=== PATIENT | male | born 1965 | race African-American/Black ===

== ENCOUNTER 2016-07-08 20:34 | Emergency (ER) | payer OTHER ==
[~2016-07-08] VITALS: Ht 177.8 cm; Wt 95.3 kg
[2016-07-08 21:04] VITALS: BP 142/95
--- NOTE | 2016-07-08 22:23 | NUR ---
PT TAKEN TO BED 3
--- NOTE | 2016-07-08 22:52 | NUR ---
51Y/M PT PRESENTS TO ED WITH C/O HEADACHE X 3 DAYS, PATIENT STATES HX. HTN, HAVING PAIN X 3 DAYS, TODAY PAIN WORSEN . DENIES N/V/D; SKIN IS PINK/WARM/DRY; AAOX4 WITH EVEN AND STEADY GAIT; LUNGS CLEAR BL; HR EVEN AND REGULAR; PT DENIES ANY FEVER, CP, SOB, OR COUGH AT THIS TIME; PATIENT STATES PAIN OF 8/10 AT THIS TIME; VSS; PATIENT POSITIONED FOR COMFORT; HOB ELEVATED; BEDRAILS UP X2; BED DOWN. ER MD MADE AWARE OF PT STATUS.
--- NOTE | 2016-07-08 23:46 | NUR ---
Michelle cornejo in [facility] - 07/09/16 at [address] Charles evaluating patient at bedside.
--- NOTE | 2016-07-09 00:01 | NUR ---
Dr. Charles evaluating patient at bedside.
[2016-07-09 00:18] VITALS: BP 142/95
--- NOTE | 2016-07-09 00:18 | NUR ---
Patient discharged with v/s stable. Written and verbal after care instructions given and explained. Patient alert, oriented and verbalized understanding of instructions. Ambulatory with steady gait. All questions addressed prior to discharge. ID band removed. Patient advised to follow up with PMD. Rx of AMITRIPTYLINE HYDROCHLORIDE 50MG given. Patient educated on indication of medication including possible reaction and side effects. Opportunity to ask questions provided and answered.
[2016-09-08] MEDS ORDERED: COREG25 MG PO (06:40)
[2016-09-08] MEDS ORDERED: HCTZ/LISINOPRIL1 TA1 PO (06:40)
== END 2016-07-09 00:18 | disposition home or self-care (01) ==
LOC: MED 20:34
DX: G50.0 Trigeminal neuralgia (principal); I10 Essential (primary) hypertension; Z88.1 Allergy status to other antibiotic agents

== ENCOUNTER 2016-09-08 05:52 | Day surgery (SDC) | payer OTHER ==
[~2016-09-08] VITALS: Ht 177.8 cm; Wt 95.3 kg
[2016-09-08] MEDS ORDERED: CLINDAMYCIN 600 MG in DEXTROSE 5% 50 ML IV SCH (06:20)
[2016-09-08] MEDS ORDERED: CARV25TA PO (06:40)
[2016-09-08] MEDS ORDERED: HYDR-7 PO (06:40)
[2016-09-08] MEDS ORDERED: BUPIVACAINE-MPF/EPI 0.25% 30 ML VIAL INJ ONE (08:48)
[2016-09-08] MEDS ORDERED: LIDOCAINE 1% 0 ML ONE (08:48)
[2016-09-08] MEDS ORDERED: SEVOFLURANE 250 ML BTL INH ONE (09:20)
[2016-09-08] MEDS ORDERED: PROPOFOL 200 MG/20 ML VIAL IV ONE (09:20)
[2016-09-08] MEDS ORDERED: ONDANSETRON 4 MG/2 ML VIAL ONE (09:20)
[2016-09-08] MEDS ORDERED: DEXAMETHASONE 4 MG/ML VIAL ONE (09:20)
[2016-09-08] MEDS ORDERED: MIDAZOLAM 2 MG/2 ML VIAL ONE (09:24)
[2016-09-08] MEDS ORDERED: MEPERIDINE 50 MG/ML SYR ONE (09:25)
[2016-09-08] MEDS ORDERED: fentaNYL 0.05 MG/ML VIAL ONE (09:25)
[2016-09-08] MEDS: LACTATED RINGERS 1,000 ML IV SCH ×2 (09:57→18:17)
[2016-09-08] MEDS ORDERED: MEPERIDINE 25 MG/ML SYR IVP PRN (10:00)
[2016-09-08] MEDS ORDERED: ONDANSETRON 4 MG/2 ML VIAL IVP PRN (10:00)
[2016-09-08] MEDS ORDERED: diphenhydrAMINE 50 MG/ML VIAL IVP PRN (10:00)
[2016-09-08] MEDS ORDERED: HYDROmorphone 1 MG/ML AMP IVP PRN (10:00)
[2016-09-08] MEDS ORDERED: LIDOCAINE 2% 100 MG/5 ML UJET TP ONE ×2 (10:44→10:49)
[2016-09-08] MEDS ORDERED: GELATIN SPONGE 100 1 SPG TP ONE (10:45)
[2016-09-08] MEDS ORDERED: FOAM DRESSING TP SCH (10:50)
[2016-09-08] MEDS: NACL 0.9% 1,000 ML IV SCH ×2 (11:07→23:12)
[2016-09-08] MEDS ORDERED: MORPHINE SULFATE 4 MG/ML SYR IV PRN (11:10)
[2016-09-08] MEDS ORDERED: ONDANSETRON 4 MG/2 ML VIAL IV PRN (11:10)
[2016-09-08] MEDS ORDERED: MORPHINE SULFATE 2 MG/ML SYR IVP PRN (11:10)
[2016-09-08] MEDS ORDERED: MEPERIDINE 25 MG/ML SYR ONE (11:49)
[2016-09-08] MEDS: oxyCODONE/APAP 5/325 MG 1 TAB TAB PO SCH ×2 (13:30→13:34)
[2016-09-08] MEDS ORDERED: DOCUSATE SODIUM 100 MG GELCAP PO PRN (18:00)
[2016-09-08] MEDS ORDERED: oxyCODONE/APAP 5/325 MG 1 TAB TAB PO PRN (18:10)
[2016-09-08] MEDS: HYDROmorphone 1 MG/ML AMP IVP PRN ×2 (18:52→23:04)
--- NOTE | 2016-09-08 19:25 | NUR ---
RECEIVED REPORT FROM HILARIO CAMARENA/IVAN AT BEDSIDE. INITIAL ASSESSMENT COMPLETED. PT AAOX4. PT DENIES PAIN AT THIS TIME. PT HAS IV TO LEFT FOREARM G 20; ASYMPTOMATIC, PATENT AND INTACT. PT'S FAMILY AT BEDSIDE. PT HAS DRESSING S/P HEMORRHOIDECTOMY. PT STABLE, CALL LIGHT WITHIN REACH. WILL CONTINUE TO MONITOR PT.
--- NOTE | 2016-09-08 23:01 | NUR ---
PT COMPLAINING OF RECTAL PAIN 02/23. VS STABLE, WILL MEDICATE ORDERED.
--- NOTE | 2016-09-09 | NUR ---
PT'S VS STABLE: BP 140/78, P 75, R 20, O2 SAT 99%, T 98.0. WILL CONTINUE TO MONITOR PT.
--- NOTE | 2016-09-09 01:10 | NUR ---
PT WATCHING TV. STATES THAT HE IS NOT SLEEPY AT THIS TIME. WILL CONTINUE TO MONITOR PT.
[2016-09-09] MEDS: LACTATED RINGERS 1,000 ML IV SCH ×2 (02:37→10:57)
--- NOTE | 2016-09-09 03:08 | NUR ---
PT COMPLAINING OF RECTAL PAIN 6/10; VS STABLE, WILL MEDICATE ORDERED.
--- NOTE | 2016-09-09 04:13 | NUR ---
PT REQUESTED TO HAVE IV DISCONNECTED TO AMBULATE TO THE RESTROOM. PT BACK IN BED NOW, RESTING COMFORTABLY. CALL LIGHT WITHIN REACH.
--- NOTE | 2016-09-09 06:17 | NUR ---
PT AMBULATING ON THE HALLWAY. PT REQUESTING A WARM BLANKET. WILL PROVIDE PT WITH NEEDS.
--- NOTE | 2016-09-09 06:48 | NUR ---
PT COMPLAINING OF RECTAL PAIN 01/24. VS STABLE, WILL MEDICATE ORDERED.
[2016-09-09] MEDS: HYDROmorphone 1 MG/ML AMP IVP PRN ×3 (06:52→19:51)
--- NOTE | 2016-09-09 07:10 | NUR ---
ENDORSED PLAN OF CARE TO HILARIO ROLDAN PT IN STABLE CONDITION.
[2016-09-09] MEDS: NACL 0.9% 1,000 ML IV SCH (15:43)
[2016-09-09] MEDS ORDERED: PSYLLIUM 12.2 GM/PKT PO SCH (16:00)
--- NOTE | 2016-09-09 16:00 | NUR ---
BP 125/78,76,18 100% 1600 VS.UP AMB IN ROOM AWAITING DR AVILA WHO WILL D/C HIM TONIGHT.PT IN NO C/O DISCOMFORT.CONTINUE TO MONITOR
--- NOTE | 2016-09-09 19:15 | NUR ---
RECEIVED REPORT FROM DAY SHIFT NURSE. PT IS AAOX4, DENIES PAIN. ON ROOM AIR, NO S/S OF RESPIRATORY DISTRESS/DISCOMFORT NOTED. IV SITE IS PATENT AND INTACT, SALINE LOCK. PLAN OF CARE DISCUSSED, VERBALIZED UNDERSTANDING. SAFETY MEASURES CHECKED, CALL LIGHT WITHIN REACH. WILL CONTINUE TO MONITOR.
--- NOTE | 2016-09-09 22:00 | NUR ---
PT HAS BEEN DISCHARGED. ALL PAPERWORK SIGNED. ALL QUESTIONS ANSWERED. ALL BELONGINGS AND PRESCRIPTIONS IN PATIENT POSSESSION. IV DC'ED WITH CANNULA INTACT. WRISTBAND REMOVED. NOTIFIED HOUSE SUP. OFFERED PATIENT WHEELCHAIR. HI LIFT OPERATOR BY FAMILY MEMBER. PT IN STABLE CONDITION.
== END 2016-09-09 22:00 | disposition home or self-care (01) ==
LOC: MDS 05:52 → MMU 06:08 → MTU 14:50 → MDS 09-09 22:00
PROVIDERS: ATTEND Surgery
DX: K64.8 Other hemorrhoids (principal); K64.4 Residual hemorrhoidal skin tags; I10 Essential (primary) hypertension
CPT/HCPCS: 71010; 93005; G0378; J1100; J1170; J2001; J2175; J2250; J2270; J2405; J2704; J3010; J3490; J7030; J7060; J7120

== ENCOUNTER 2016-09-17 03:55 | Emergency (ER) | payer OTHER ==
[~2016-09-17] VITALS: Ht 177.8 cm; Wt 90.3 kg
[~2016-09-17 03:55] MED LIST: CARV25TA PO; HYDR-7 PO
[2016-09-17 04:06] VITALS: BP 123/71
--- NOTE | 2016-09-17 04:10 | NUR ---
TO ER BED 6
--- NOTE | 2016-09-17 04:13 | NUR ---
51 Y/O M W/C/O ABD PAIN, NVD; 02/23 S/P DRINK FROM [place] IT UP TODAY . NO S/S OF DISTRESS NOTED. ER MD MADE AWARE.
--- NOTE | 2016-09-17 04:14 | NUR ---
Patient being evaluated by physician at bedside.
[2016-09-17] MEDS: ONDANSETRON 4 MG/2 ML VIAL IVP ONE (04:34)
[2016-09-17] MEDS: NACL 0.9% 1,000 ML IV ONE (04:35)
[2016-09-17] MEDS: KETOROLAC 30 MG/ML VIAL IVP ONE (04:35)
[2016-09-17 05:17] VITALS: BP 119/74
--- NOTE | 2016-09-17 05:17 | NUR ---
Patient discharged with v/s stable. Written and verbal after care instructions given and explained. Patient alert, oriented and verbalized understanding of instructions. Ambulatory with steady gait. All questions addressed prior to discharge. ID band removed. Patient advised to follow up with PMD OR RETURN TO ER IF CONDITION WORSENS.Rx of TRAMADOL HYDROCHLORIDE AND ZOFRAN given. Patient educated on indication of medication including possible reaction and side effects. Opportunity to ask questions provided and answered.
== END 2016-09-17 05:17 | disposition home or self-care (01) ==
LOC: MED 03:55
DX: T62.91XA Toxic effect of unspecified noxious substance eaten as food, accidental (unintentional), initial encounter (principal); Y92.89 Other specified places as the place of occurrence of the external cause; I10 Essential (primary) hypertension; Z88.1 Allergy status to other antibiotic agents
CPT/HCPCS: 96361; 96374; 96375; 99284; J1885; J2405; J7030

== ENCOUNTER 2017-02-12 21:39 | Inpatient (IN) | payer OTHER ==
[~2017-02-12] VITALS: Ht 177.8 cm; Wt 94.6 kg
[2017-02-12 21:50] VITALS: BP 101/63
[2017-02-12] MEDS ORDERED: OXYC5TAB4 PO (21:56)
[2017-02-12] MEDS ORDERED: NACL 0.9% 1,000 ML IV ONE (22:00)
--- NOTE | 2017-02-12 22:10 | NUR ---
PT TAKEN TO BED 3.
--- NOTE | 2017-02-12 22:15 | NUR ---
C/O ABDOMINAL PAIN WITH N/V/D X 2 DAYS. PT. TOOK LENCESS FOR CONSTIPATION 2 DAYS. TOOK OXYCODONE AT 0900 THIS MORNING. HX. DIVERTICULITIS, HTN. ERMD AWARE. PT PLACE COMFORTABLY ON BED. HOB ELEVATED.
--- NOTE | 2017-02-12 22:24 | NUR ---
PT TAKEN TO CT.
[2017-02-12 22:26] LABS: APPEARANCE,URINE CLEAR (CLEAR); BILIRUBIN,URINE 1+ (NEGATIVE); BLOOD, URINE NEGATIVE (NEGATIVE); COLOR,URINE YELLOW (YELLOW); LEUKOCYTE ESTERASE ,URINE NEGATIVE (NEGATIVE); NITRITE, URINE NEGATIVE (NEGATIVE); UGLUCOSE NEGATIVE (NEGATIVE)
--- NOTE | 2017-02-12 22:28 | NUR ---
PT BACK FROM CT.
[2017-02-12 22:34] LABS: BASOPHILS # (AUTO) 0.5 K/uL (0.00-0.22); BASOPHILS % (AUTO) 4.5 % (0.0-2.0); EOSINOPHILS # (AUTO) 0.2 K/uL (0-0.4); EOSINOPHILS % (AUTO) 2.1 % (0.0-4.0); HEMATOCRIT 44.8 % (36-52); HEMOGLOBIN 13.9 g/dL (12.0-18.0); LYMPHOCYTES # (AUTO) 2.1 K/uL (2.0-11.5); LYMPHOCYTES % (AUTO) 18.8 % (20.5-51.1); MEAN CORPUSCULAR HEMOGLOBIN 23 pg (27-31); MEAN CORPUSCULAR HGB CONC 31 g/dL (33-37); MEAN CORPUSCULAR VOLUME 75 fL (80-94); MONOCYTES # (AUTO) 0.9 K/uL (0.8-1.0); MONOCYTES % (AUTO) 8.4 % (1.7-9.3); NEUTROPHILS # (AUTO) 7.4 K/uL (1.8-7.7); NEUTROPHILS % (AUTO) 66.2 % (42.2-75.2); PLATELET COUNT (AUTO) 175 K/uL (140-450); RED BLOOD CELL COUNT(AUTO) 5.98 MIL/uL (4.20-6.10); RED CELL DISTRIBUTION WIDTH 14.9 % (11.6-13.7); WHITE BLOOD COUNT (AUTO) 11.1 K/uL (4.8-10.8)
[2017-02-12 22:34] LABS: RBC,URINE 0-5 (RARE) /HPF (0-5); WBC,URINE 0-5 (RARE) /HPF (0-5)
[2017-02-12 22:35] LABS: HYALINE CASTS, URINE 70-100 /LPF (None Seen)
--- NOTE | 2017-02-12 22:36 | NUR ---
Patient being evaluated by Dr. Florence at bedside.
[2017-02-12 22:40] LABS: ANION GAP 14.7 (8-16); CREATININE 2.5 mg/dL (0.7-1.3); POTASSIUM 3.7 mmol/L (3.5-5.1)
[2017-02-12] MEDS ORDERED: MORPHINE SULFATE 4 MG/ML SYR IVP ONE (22:40)
[2017-02-12] MEDS ORDERED: ONDANSETRON 4 MG/2 ML VIAL IVP ONE (22:40)
[2017-02-12 22:46] LABS: ALBUMIN 4.3 g/dL (3.4-5.0); TOTAL BILIRUBIN 0.6 mg/dL (0.0-1.0)
[2017-02-12] MEDS ORDERED: metroNIDAZOLE 500 MG/NS PREMIX 100 ML IV ONE (23:05)
[2017-02-12] MEDS ORDERED: LEVOFLOXACIN 500 MG/D5W PREMIX 100 ML IV ONE (23:05)
[2017-02-12] MEDS ORDERED: ACETAMINOPHEN 325 MG TAB PO PRN (23:20)
[2017-02-12] MEDS ORDERED: HYDROcodone/APAP 5/325 MG 1 TAB TAB PO PRN (23:20)
[2017-02-12] MEDS ORDERED: ONDANSETRON 4 MG/2 ML VIAL IVP PRN (23:20)
[2017-02-12] MEDS ORDERED: LORazepam 2 MG/ML VIAL IVP PRN (23:20)
[2017-02-12] MEDS ORDERED: MORPHINE SULFATE 2 MG/ML SYR IVP PRN (23:20)
[2017-02-12] MEDS ORDERED: oxyCODONE 5 MG TAB PO PRN (23:20)
[2017-02-12] MEDS ORDERED: LEVOFLOXACIN 750 MG/D5W PREMIX 150 ML IV SCH (23:20)
--- NOTE | 2017-02-12 23:24 | NUR ---
DR. DAMON NOTIFIED FOR CRITICAL RAD.
--- NOTE | 2017-02-12 23:32 | NUR ---
CALLED [facility] UNIT TO GIVE REPORT. RN IN CHARGE SAID SHE WILL CALL BACK.
--- NOTE | 2017-02-12 23:32 | NUR ---
Patient will be admitted to care of DR. RIOS. Admited to TELE. Will go to room 106B. Belongings list completed.
--- NOTE | 2017-02-12 23:45 | NUR ---
REPORT GIVEN TO HILARIO TOSCANO.
--- NOTE | 2017-02-12 23:50 | NUR ---
PT TRANSFERRED TO FLOOR ACCOMPANIED BY RN AND EMT VIA [facility] ON GUARDED CONDITION.
[2017-02-13] VITALS: BP 120/60
--- NOTE | 2017-02-13 00:05 | NUR ---
ADMITTED PATIENT TO THE TELE UNIT, PATIENT AWAKE ALERT ORIENTED X4, NO S/S OF ACUTE DISTRESS NOTED, RESPIRATION EVEN AND UNLABORED.TELE MONITOR PLACED ON PATIENT. FLUSHED IV WITH 10ML NS, PATENT AND INTACT. PATIENT REFUSED TO TAKE OFF HIS PANTS FOR SKIN ASSESSMENT. HE STATED," I DON'T WANT TO TAKE OFF MY PANTS, MAYBE I WILL TOMORROW." EDUCATED PATIENT IT IS THE HOSPITAL POLICY TO ASSESS THE SKIN, PATIENT STILL REFUSED. PLAN OF CARE DISCUSSED, VERBALIZED UNDERSTANDING. CALL LIGHT WITHIN REACH, SAFETY MEASURE ENSURED, WILL CONTINUE TO MONITOR.
[2017-02-13] MEDS: NACL 0.9% 1,000 ML IV SCH ×2 (00:07→11:47)
[2017-02-13] MEDS ORDERED: MORPHINE SULFATE 2 MG/ML SYR IVP PRN (00:45)
[2017-02-13] MEDS ORDERED: oxyCODONE/APAP 5/325 MG 1 TAB TAB PO PRN (00:45)
--- NOTE | 2017-02-13 00:48 | NUR ---
RECEIVED ORDERS FROM DR. RAINEY, 2MG MORPHINE IVP Q4H PRN FOR SEVERE PAIN, AND PERCOCET 5/325 PO, Q4H, PRN FOR MODERATE PAIN. ORDERS READ BACK, DR. RAINEY CONFIRMED.
--- NOTE | 2017-02-13 03:06 | NUR ---
PATIENT IS SLEEPING AT THIS TIME. NO S/S OF ACUTE DISTRESS NOTED, RESPIRATION EVEN AND UNLABORED, CALL LIGHT WITHIN REACH, SAFETY MEASURE ENSURED, WILL CONTINUE TO MONITOR.
[2017-02-13 04:00] VITALS: BP 117/73
[2017-02-13] MEDS ORDERED: metroNIDAZOLE 500 MG/NS PREMIX 100 ML IV SCH (05:00)
--- NOTE | 2017-02-13 05:35 | NUR ---
AM FLAGYL STARTED. PATIENT TOLERATED WELL. WILL CONTINUE TO MONITOR.
--- NOTE | 2017-02-13 06:18 | NUR ---
PATIENT IS SLEEPING AT THIS TIME NO S/S OF ACUTE DISTRESS NOTED, RESPIRATION EVEN AND UNLABORED, CALL LIGHT WITHIN REACH, SAFETY MEASURE ENSURED, WILL CONTINUE TO MONITOR.
--- NOTE | 2017-02-13 07:17 | NUR ---
ENDORSED PLAN OF CARE TO DAY RN. PATIENT IN STABLE CONDITION. NO S/S OF ACUTE DISTRESS.
--- NOTE | 2017-02-13 07:18 | NUR ---
RECEIVED PT FROM RECREATIONAL LEADER NURSE AT BEDSIDE. PT IS A&OX4. PT HAS IV ON L F/A 22 G RUNNING NS@80. NO DISTRESS NOTED IN PT. PT HAS NOT HAD DIARRHEA SINCE HOSPITALIZED. NO COMPLAINTS AT THIS TIME. CALL LIGHT WITHIN REACH. WILL CONTINUE TO MONITOR.
[2017-02-13 07:27] LABS: BASOPHILS # (AUTO) 0.2 K/uL (0.00-0.22); EOSINOPHILS # (AUTO) 0.2 K/uL (0-0.4); EOSINOPHILS % (AUTO) 1.7 % (0.0-4.0); HEMATOCRIT 41.6 % (36-52); HEMOGLOBIN 13.1 g/dL (12.0-18.0); LYMPHOCYTES # (AUTO) 2.4 K/uL (2.0-11.5); LYMPHOCYTES % (AUTO) 24.2 % (20.5-51.1); MEAN CORPUSCULAR HEMOGLOBIN 23 pg (27-31); MEAN CORPUSCULAR HGB CONC 31 g/dL (33-37); MEAN CORPUSCULAR VOLUME 74 fL (80-94); MONOCYTES # (AUTO) 0.8 K/uL (0.8-1.0); MONOCYTES % (AUTO) 8.4 % (1.7-9.3); NEUTROPHILS # (AUTO) 6.1 K/uL (1.8-7.7); NEUTROPHILS % (AUTO) 63.7 % (42.2-75.2); PLATELET COUNT (AUTO) 165 K/uL (140-450); RED BLOOD CELL COUNT(AUTO) 5.59 MIL/uL (4.20-6.10); RED CELL DISTRIBUTION WIDTH 15.2 % (11.6-13.7); WHITE BLOOD COUNT (AUTO) 9.8 K/uL (4.8-10.8)
[2017-02-13 07:28] LABS: ANION GAP 12.7 (8-16); CARBON DIOXIDE 25.2 mmol/L (21-32); POTASSIUM 3.9 mmol/L (3.5-5.1)
[2017-02-13 08:00] VITALS: BP 120/69
[2017-02-13] MEDS ORDERED: LISINOPRIL 20 MG TAB PO SCH (09:00)
[2017-02-13] MEDS ORDERED: CARVEDILOL 12.5 MG TAB PO SCH (09:00)
[2017-02-13] MEDS ORDERED: ENOXAPARIN 40 MG/0.4 ML SYR SUBQ SCH (09:00)
[2017-02-13] MEDS ORDERED: NON-FORMULARY ITEM (Lisinopril/Hydrochlorothiazide (Lisinopril-Hctz 20-12.5 mg Tab) 1 TAB) PO SCH (09:00)
[2017-02-13] MEDS ORDERED: HYDROCHLOROTHIAZIDE 25 MG TAB PO SCH (09:00)
--- NOTE | 2017-02-13 09:30 | NUR ---
PT IS IN STABLE CONDITION. CALL LIGHT WITHIN REACH. WILL CONTINUE TO MONITOR.
[2017-02-13] MEDS ORDERED: ACET-2858 PO (10:12)
[2017-02-13] MEDS ORDERED: DOCU-299 PO (10:12)
[2017-02-13] MEDS ORDERED: METR500T1 PO (10:12)
--- NOTE | 2017-02-13 10:22 | NUR ---
PATIENT HAS BEEN SCREENED AND CATEGORIZED MODERATE NUTRITION RISK. PATIENT WILL BE SEEN WITHIN 3-5 DAYS OF ADMISSION. 02/15/17 - 02/17/17 BHARATH SHAH MBA, RD
[2017-02-13 11:32] VITALS: BP 120/69
--- NOTE | 2017-02-13 11:45 | NUR ---
PT SAT UP IN BED TO EAT LUNCH. CALL LIGHT WITHIN REACH. WILL CONTINUE TO MONITOR.
[2017-02-13 12:00] VITALS: BP 119/71
--- NOTE | 2017-02-13 12:10 | NUR ---
WENT OVER DC PAPERWORK WITH PT. GAVE PRESCRIPTIONS TO PT. PT VERBALIZED UNDERSTANDING AND SIGNED APPROPRIATE PAPERWORK. CALL LIGHT WITHIN REACH. WILL CONTINUE TO MONITOR.
--- NOTE | 2017-02-13 12:45 | NUR ---
REMOVED IV CANNULA INTACT. REMOVED ALL ID BANDS. PT TOOK ALL BELONGINGS. REFUSED WHEELCHAIR. WALKED PT OUT OF HOSPITAL. PT IN STABLE CONDITION.
--- NOTE | 2017-02-15 08:33 | NUR ---
RETRO ER REPORT, H&P AND DISCHARGE SUMMARY FAXED TO [facility] [phone] PHONE SANDEE [phone]
== END 2017-02-13 12:45 | disposition home or self-care (01) | DRG 244 ==
LOC: MED 21:39 → MTU 23:22
PROVIDERS: ADMIT Hospitalist; ATTEND Hospitalist
DX: K57.32 Diverticulitis of large intestine without perforation or abscess without bleeding (principal); N17.9 Acute kidney failure, unspecified; G89.29 Other chronic pain; D72.829 Elevated white blood cell count, unspecified; I10 Essential (primary) hypertension; Z88.1 Allergy status to other antibiotic agents
CPT/HCPCS: 36415; 80048; 80053; 81001; 82150; 83690; 83735; 85025; 87081; 96374; 96375; 99285; J1650; J1956; J2270; J2405; J3490; J7030

== ENCOUNTER 2017-07-02 00:45 | Inpatient (IN) | payer OTHER ==
[~2017-07-02] VITALS: Ht 177.8 cm; Wt 92.5 kg
[~2017-07-02 00:45] MED LIST changes: +ACET-2858 PO; +DOCU-299 PO; +METR500T1 PO; +OXYC5TAB4 PO
[2017-07-02 00:52] VITALS: BP 90/52
--- NOTE | 2017-07-02 00:57 | NUR ---
PT TAKEN TO CHAIR C
--- NOTE | 2017-07-02 01:02 | NUR ---
DR. DAMON EVALUATING PATIENT
[2017-07-02] MEDS ORDERED: LEVOFLOXACIN 500 MG/D5W PREMIX 100 ML IV ONE (01:05)
[2017-07-02] MEDS ORDERED: MORPHINE SULFATE 4 MG/ML SYR IVP ONE (01:05)
[2017-07-02] MEDS ORDERED: metroNIDAZOLE 500 MG/NS PREMIX 100 ML IV ONE (01:05)
--- NOTE | 2017-07-02 01:14 | NUR ---
PT MOVED TO BED 10
[2017-07-02] MEDS ORDERED: NACL 0.9% 1,000 ML IV ONE ×2 (01:20→01:25)
--- NOTE | 2017-07-02 01:20 | NUR ---
PT.UNABLE TO URINATE AT THIS TIME, DR. DAMON MADE AWARE.
--- NOTE | 2017-07-02 01:20 | NUR ---
52Y/M PT.PRESENTS TO ED WITH C/O ABDOMINAL PAIN. HX.DIVERTICULITIS CHRONIC, HTN. AAO X4, AMBULATORY WITH STEADY GAIT. RESPIRATIONS ROOM AIR, EVEN AND UNLABORED. ABDOMEN SOFT, NON TENDER, ACTIVE BS X 4, C/O PAIN 8/. VSS, ER MD MADE AWARE OF PT. STATUS.
[2017-07-02 01:22] LABS: BASOPHILS # (AUTO) 0.3 K/uL (0.00-0.22); BASOPHILS % (AUTO) 2.6 % (0.0-2.0); EOSINOPHILS # (AUTO) 0.1 K/uL (0-0.4); EOSINOPHILS % (AUTO) 1.1 % (0.0-4.0); HEMATOCRIT 42.8 % (36-52); HEMOGLOBIN 13.5 g/dL (12.0-18.0); LYMPHOCYTES # (AUTO) 1.3 K/uL (2.0-11.5); LYMPHOCYTES % (AUTO) 10.9 % (20.5-51.1); MEAN CORPUSCULAR HEMOGLOBIN 24 pg (27-31); MEAN CORPUSCULAR HGB CONC 32 g/dL (33-37); MEAN CORPUSCULAR VOLUME 75 fL (80-94); MONOCYTES # (AUTO) 1.1 K/uL (0.8-1.0); NEUTROPHILS # (AUTO) 9.5 K/uL (1.8-7.7); NEUTROPHILS % (AUTO) 76.4 % (42.2-75.2); PLATELET COUNT (AUTO) 167 K/uL (140-450); WHITE BLOOD COUNT (AUTO) 12.3 K/uL (4.8-10.8)
[2017-07-02] MEDS ORDERED: ONDANSETRON 4 MG/2 ML VIAL ONE (01:28)
[2017-07-02] MEDS ORDERED: ONDANSETRON 4 MG/2 ML VIAL IVP ONE (01:30)
[2017-07-02 01:39] LABS: ANION GAP 11.7 (8-16); CREATININE 1.9 mg/dL (0.7-1.3); POTASSIUM 3.7 mmol/L (3.5-5.1)
[2017-07-02 01:45] LABS: ALBUMIN 3.5 g/dL (3.4-5.0); TOTAL BILIRUBIN 0.8 mg/dL (0.0-1.0)
--- NOTE | 2017-07-02 02:35 | NUR ---
PT. TAKEN TO CT
--- NOTE | 2017-07-02 02:49 | NUR ---
PT RETURN FROM CT
[2017-07-02 03:38] LABS: APPEARANCE,URINE CLEAR (CLEAR); BILIRUBIN,URINE NEGATIVE (NEGATIVE); BLOOD, URINE NEGATIVE (NEGATIVE); COLOR,URINE YELLOW (YELLOW); LEUKOCYTE ESTERASE ,URINE NEGATIVE (NEGATIVE); NITRITE, URINE NEGATIVE (NEGATIVE); PH,URINE 5.5 (5.0-9.0); UGLUCOSE NEGATIVE (NEGATIVE)
--- NOTE | 2017-07-02 04:25 | NUR ---
Patient appears to be resting comfortably in bed. Vital Signs within normal limits. Respirations even and unlabored.
[2017-07-02] MEDS ORDERED: ACETAMINOPHEN 325 MG TAB PO PRN (04:55)
[2017-07-02] MEDS ORDERED: HYDROcodone/APAP 5/325 MG 1 TAB TAB PO PRN (04:55)
[2017-07-02 05:00] VITALS: BP 115/72
--- NOTE | 2017-07-02 05:05 | NUR ---
Patient will be admitted to care of . Admited to M/S. Will go to room 104A. Belongings list completed. Report to HILARIO DYE.
--- NOTE | 2017-07-02 05:05 | NUR ---
RECEIVED PT FROM ER IN STABLE CONDITION. NO S/S OF DISTRESS NOTED. PT AAOX4, ON ROOM AIR. PT AMBULATED FROM WHEELCHAIR TO BED. IV TO L AC 18G, PATENT AND INTACT. SKIN IS INTACT. RESPIRATIONS ARE EVEN AND UNLABORED. BOWEL SOUNDS ARE PRESENT. PT CAME IN WITH C/O OF ABD PAIN TO ER. DX OF DIVERTICULITIS. INITIAL ASSESSMENT COMPLETED. PLAN OF CARE DISCUSSED WITH PT, VERBALIZED UNDERSTANDING. ALL SAFETY PRECAUTIONS MET, CALL LIGHT WITHIN REACH, BOARD UPDATED WILL CONTINUE TO MONITOR
--- NOTE | 2017-07-02 05:30 | NUR ---
PT IN BED LAUGHING AND SMILING, NO S/S OF DISTRESS NOTED.
[2017-07-02] MEDS: NACL 0.9% 1,000 ML IV SCH ×2 (05:44→17:21)
[2017-07-02] MEDS: metroNIDAZOLE 500 MG/NS PREMIX 100 ML IV SCH ×3 (05:44→21:08)
[2017-07-02] MEDS: MORPHINE SULFATE 4 MG/ML SYR IVP PRN (06:09)
--- NOTE | 2017-07-02 06:09 | NUR ---
PT STATES, "I AM IN PAIN." I ASKED TO RATE PAIN ON A SCALE OF 1-10 AND PT STATED, "MORPHINE." PT WOULD NOT ANSWER
--- NOTE | 2017-07-02 07:30 | NUR ---
REPORT RECEIVED FROM HEALTH EDUCATION TEACHER NURSE, NICOLA, PT RESTING WITH EYES CLOSED, RESP EVEN UNLABORED ON RA, SKIN WARM DRY COLOR WNL, PT DENIES PAIN OR DISCOMFORT, IVF INFUSING WELL, SITE WNL, PLAN OF CARE REVIEWED, ALL SAFETY MEASURES IN PLACE, WILL CONTINUE TO MONITOR.
--- NOTE | 2017-07-02 07:30 | NUR ---
REPORT GIVEN TO DAY NURSE CIRO RN FOR CONTINUITY OF CARE, PT IN STABLE CONDITION
[2017-07-02 08:00] VITALS: BP 107/66
[2017-07-02] MEDS: DOCUSATE SODIUM 100 MG GELCAP PO SCH ×2 (08:24→21:03)
[2017-07-02] MEDS: CARVEDILOL 12.5 MG TAB PO SCH ×2 (08:24→21:00)
[2017-07-02] MEDS: ENOXAPARIN 40 MG/0.4 ML SYR SUBQ SCH (08:27)
--- NOTE | 2017-07-02 08:35 | NUR ---
PT SITTING UP EATING BREAKFAST, AM MEDS GIVEN AND ZOFRAN GIVEN FOR C/O NAUSEA, DENIES ANY OTHER NEEDS, WILL CONTINUE TO MONTIOR.
[2017-07-02] MEDS: ONDANSETRON 4 MG/2 ML VIAL IVP PRN (08:36)
[2017-07-02] MEDS: LISINOPRIL 20 MG TAB PO SCH ×2 (08:39→21:03)
[2017-07-02] MEDS: HYDROCHLOROTHIAZIDE 25 MG TAB PO SCH ×2 (08:39→21:03)
[2017-07-02] MEDS ORDERED: NON-FORMULARY ITEM (Lisinopril/Hydrochlorothiazide (Lisinopril-Hctz 20-12.5 mg Tab) 1 TAB) PO SCH (09:00)
--- NOTE | 2017-07-02 09:13 | NUR ---
PATIENT HAS BEEN SCREENED AND CATEGORIZED MODERATE NUTRITION RISK. PATIENT WILL BE SEEN WITHIN 3-5 DAYS OF ADMISSION. 07/04/17-07/06/[address]
[2017-07-02 10:29] LABS: CREATINE KINASE MB 4.1 ng/mL (0-3.6)
--- NOTE | 2017-07-02 11:53 | NUR ---
CM NOTE INITIAL REVIEW FAXED TO [facility] [phone] SANDEE # [phone]
--- NOTE | 2017-07-02 13:02 | NUR ---
PT SITTING UP EATING LUNCH, PT DENIES N/V, DENIES PAIN OR DISCOMFORT, PT REQUESTS TO GO OUT TO HIS CAR TO GET CHOCOLATE OUT OF IS CAR SO THEY DON'T MELT, WILL NOTIFY CHARGE NURSE.
--- NOTE | 2017-07-02 14:35 | NUR ---
DR PLASCENCIA TO BEDSIDE
[2017-07-02 16:00] VITALS: BP 114/78
[2017-07-02] MEDS ORDERED: CALCIUM POLYCARBOPHIL 625 MG TAB PO SCH (16:00)
--- NOTE | 2017-07-02 16:00 | NUR ---
PT C/O LEFT AC IV, WANTS TO HAVE ANOTHER IV, NEW IV STARTED TO LEFT FA 20G, PT CASEY WELL, IVF RESUMED. PT DENIES PAIN OR DISCOMFORT, TALKING PLEASANTLY IN NAD, EATING ICECREAM IN NAD.
--- NOTE | 2017-07-02 18:12 | NUR ---
FAMILY VISITING AT BEDSIDE, PT SITTING UP EATING DINNER, DENIES PAIN OR DISCOMFORT, WILL CONTINUE TO MOTNIOR.
--- NOTE | 2017-07-02 19:28 | NUR ---
REPORT GIVEN TO CERAMICS TEACHER NURSE, PT IN STABLE CONDITION TALKING WITH FRIEND AT BEDSIDE.
--- NOTE | 2017-07-02 19:29 | NUR ---
RECEIVED REPORT FROM DAY SHIFT NURSE. PT IS A/OX4, ON ROOM AIR. 20G IV TO LEFT FOREARM INFUSING NS@80ML/HR. PT AMBULATES WITH STEADY GAIT. PT SKIN IS INTACT. UPDATED BOARD. VITAL SIGNS WITHIN NORMAL LIMITS. PT IN STABLE CONDITION, NO SIGNS OF DISTRESS NOTED. BED IN LOWEST POSITION, CALL LIGHT WITHIN REACH. WILL CONTINUE TO MONITOR.
[2017-07-02] MEDS ORDERED: LEVOFLOXACIN 750 MG/D5W PREMIX 150 ML IV SCH (21:00)
--- NOTE | 2017-07-02 21:08 | NUR ---
ADMINISTERED SCHEDULED MEDICATIONS, PT TOLERATED WELL. HELD CARVEDILOL BECAUSE HEART RATE IS TATUM AT 54.
--- NOTE | 2017-07-03 | NUR ---
VITAL SIGNS WITHIN NORMAL LIMITS. PT IN STABLE CONDITION, NO SIGNS OF DISTRESS NOTED. BED IN LOWEST POSITION, CALL LIGHT WITHIN REACH. WILL CONTINUE TO MONITOR.
[2017-07-03 00:36] VITALS: BP 131/75
[2017-07-03] MEDS: ONDANSETRON 4 MG/2 ML VIAL IVP PRN ×2 (02:28→08:44)
[2017-07-03] MEDS: MORPHINE SULFATE 4 MG/ML SYR IVP PRN ×2 (02:47→08:32)
--- NOTE | 2017-07-03 02:47 | NUR ---
PT C/O PAIN AND ASKED FOR MORPHINE. ADMINISTERED MORPHINE PER ORDER, PT TOLERATED WELL. PT IN STABLE CONDITION, NO SIGNS OF DISTRESS NOTED. BED IN LOWEST POSITION, CALL LIGHT WITHIN REACH. WILL CONTINUE TO MONITOR.
--- NOTE | 2017-07-03 04:47 | NUR ---
PT INSISTING I CALL FOR AN ORDER FOR A LAXATIVE AND SOMETHING FOR GAS. CALLED DR RAINEY (CONTROLS DESIGNER FOR DR MACIEL), TOLD DR RAINEY PT IS ON COLACE BID AND FIBERCON AND DR RAINEY SAID TO ORDER ONLY MIRALAX 17GM DAILY. PUT ORDER IN SYSTEM, WILL AWAIT FOR PHARMACY TO VERIFY.
[2017-07-03] MEDS: NACL 0.9% 1,000 ML IV SCH (04:51)
[2017-07-03] MEDS: metroNIDAZOLE 500 MG/NS PREMIX 100 ML IV SCH ×2 (04:56→12:35)
[2017-07-03] MEDS ORDERED: POLYETHYLENE GLYCOL 17 GM/PKT PO SCH ×2 (05:15→09:00)
--- NOTE | 2017-07-03 05:52 | NUR ---
ADMINISTERED MIRALAX, PT TOLERATED WELL. PT IN STABLE CONDITION, NO SIGNS OF DISTRESS NOTED. BED IN LOWEST POSITION, CALL LIGHT WITHIN REACH. WILL CONTINUE TO MONITOR.
--- NOTE | 2017-07-03 07:20 | NUR ---
RECEIVED PATIENT REPORT AT BEDSIDE. PATIENT AWAKE ALERT AND ORIENTED. PATIENT ON ROOM AIR. NO S/S OF DISTRESS NOTED. PATIENT C/O ABD PAIN. WILL MEDICATE. BED LOWERED WITH CALL LIGHT WITHIN REACH. WILL CONTINUE TO MONITOR
[2017-07-03 07:23] LABS: BASOPHILS # (AUTO) 0.1 K/uL (0.00-0.22); BASOPHILS % (AUTO) 1.8 % (0.0-2.0); EOSINOPHILS # (AUTO) 0.2 K/uL (0-0.4); EOSINOPHILS % (AUTO) 2.3 % (0.0-4.0); HEMATOCRIT 38.8 % (36-52); HEMOGLOBIN 12.4 g/dL (12.0-18.0); LYMPHOCYTES # (AUTO) 1.8 K/uL (2.0-11.5); LYMPHOCYTES % (AUTO) 22.4 % (20.5-51.1); MEAN CORPUSCULAR HEMOGLOBIN 24 pg (27-31); MEAN CORPUSCULAR HGB CONC 32 g/dL (33-37); MEAN CORPUSCULAR VOLUME 75 fL (80-94); MONOCYTES # (AUTO) 0.7 K/uL (0.8-1.0); MONOCYTES % (AUTO) 8.6 % (1.7-9.3); NEUTROPHILS # (AUTO) 5.4 K/uL (1.8-7.7); NEUTROPHILS % (AUTO) 64.9 % (42.2-75.2); PLATELET COUNT (AUTO) 133 K/uL (140-450); RED BLOOD CELL COUNT(AUTO) 5.15 MIL/uL (4.20-6.10); RED CELL DISTRIBUTION WIDTH 14.8 % (11.6-13.7); WHITE BLOOD COUNT (AUTO) 8.2 K/uL (4.8-10.8)
--- NOTE | 2017-07-03 07:38 | NUR ---
ENDORSED PT IN STABLE CONDITION TO DAY SHIFT NURSE FOR CONTINUITY OF CARE.
[2017-07-03 07:57] LABS: ALBUMIN 2.8 g/dL (3.4-5.0); ANION GAP 12.5 (8-16); CARBON DIOXIDE 28.3 mmol/L (21-32); CREATININE 1.4 mg/dL (0.7-1.3); POTASSIUM 3.8 mmol/L (3.5-5.1); TOTAL BILIRUBIN 0.8 mg/dL (0.0-1.0)
[2017-07-03 08:00] VITALS: BP 134/92
[2017-07-03 08:32] LABS: CREATINE KINASE MB 2.1 ng/mL (0-3.6)
[2017-07-03] MEDS: HYDROCHLOROTHIAZIDE 25 MG TAB PO SCH (08:39)
[2017-07-03] MEDS: ENOXAPARIN 40 MG/0.4 ML SYR SUBQ SCH (08:42)
[2017-07-03] MEDS: LISINOPRIL 20 MG TAB PO SCH (08:46)
[2017-07-03] MEDS: CARVEDILOL 12.5 MG TAB PO SCH (08:47)
[2017-07-03] MEDS: DOCUSATE SODIUM 100 MG GELCAP PO SCH (08:47)
[2017-07-03] MEDS ORDERED: CALCIUM POLYCARBOPHIL 625 MG TAB PO SCH ×2 (09:00)
[2017-07-03] MEDS ORDERED: LINA290C PO (11:37)
[2017-07-03] MEDS ORDERED: MAG SULF 2000 MG/WATER PREMIX 50 ML IV ONE (14:50)
[2017-07-03] MEDS ORDERED: MAGNESIUM OXIDE 400 MG TAB PO SCH (15:01)
[2017-07-03] MEDS ORDERED: METR250T2 PO (15:21)
[2017-07-03] MEDS ORDERED: LEVO750T2 PO (15:22)
--- NOTE | 2017-07-03 15:50 | NUR ---
PATIENT DISCHARGED TO HOME. DISCHARGE INSTRUCTIONS AND DISCHARGE PRESCRIPTION GIVEN. PATIENT VERBALIZED UNDERSTANDING. IV LINE DISCONTINUED. PATIENT LEFT WITH ALL HIS BELONGINGS AND DISCHARGE PAPERS. PATIENT LEFT IN STABLE CONDITION.
== END 2017-07-03 15:50 | disposition home or self-care (01) | DRG 244 ==
LOC: MED 00:45 → MTU 04:54
PROVIDERS: ADMIT Hospitalist; ATTEND Hospitalist
DX: K57.32 Diverticulitis of large intestine without perforation or abscess without bleeding (principal); N17.0 Acute kidney failure with tubular necrosis; I12.9 Hypertensive chronic kidney disease with stage 1 through stage 4 chronic kidney disease, or unspecified chronic kidney disease; N18.9 Chronic kidney disease, unspecified; Z88.1 Allergy status to other antibiotic agents
CPT/HCPCS: 36415; 80053; 81003; 82150; 82550; 82553; 83690; 83735; 84484; 85025; 87081; 96361; 96365; 96375; 99285; J1650; J1956; J2270; J2405; J3490; J7030

== ENCOUNTER 2017-11-22 22:50 | Emergency (ER) | payer OTHER ==
[~2017-11-22] VITALS: Ht 177.8 cm; Wt 93.0 kg
[~2017-11-22 22:50] MED LIST changes: +LEVO750T2 PO; +LINA290C PO; +METR250T2 PO; -OXYC5TAB4 PO
[2017-11-22 22:55] VITALS: BP 133/100
--- NOTE | 2017-11-22 22:58 | NUR ---
TO BED # 3 AMBULATORY , REPORT GIVEN TO NICOL RICH.
--- NOTE | 2017-11-22 23:10 | NUR ---
52/M CAME IN ED, C/O 09/23 SHARP LLQ PAIN, X3 DAYS. PT STATED "I NEED XRAY FOR MY DIVERTICULTIS." HX DIVERTICULITIS, HTN. ABD SOFT, ROUND, BS ACTIVE X4, SLIGHT TENDERNESS ON LLQ. PT DENIES N/V/D; SKIN IS INTACT, PINK/WARM/DRY; AAOX4, PERRL, WITH EVEN AND STEADY GAIT; LUNGS CLEAR BL, BREATHING UNLABORED; HR EVEN AND REGULAR, BL PERIPHERAL PULSES PRESENT; PT DENIES ANY FEVER, CP, SOB, OR COUGH AT THIS TIME; PATIENT POSITIONED FOR COMFORT; HOB ELEVATED; BEDRAILS UP X2; BED DOWN.
--- NOTE | 2017-11-22 23:19 | NUR ---
DR HERNDON AT BEDSIDE
[2017-11-22] MEDS ORDERED: CIPROFLOXACIN 250 MG TAB PO ONE (23:25)
[2017-11-22] MEDS ORDERED: metroNIDAZOLE 250 MG TAB PO ONE (23:25)
[2017-11-22 23:55] VITALS: BP 134/91
--- NOTE | 2017-11-22 23:55 | NUR ---
Patient discharged with v/s stable. Written and verbal after care instructions given and explained. Patient alert, oriented and verbalized understanding of instructions. Ambulatory with steady gait. All questions addressed prior to discharge. ID band removed. Patient advised to follow up with PMD. Rx of CIPRO AND FLAGYL given. Patient educated on indication of medication including possible reaction and side effects. Opportunity to ask questions provided and answered.
== END 2017-11-22 23:55 | disposition home or self-care (01) ==
LOC: MED 22:50
DX: K57.92 Diverticulitis of intestine, part unspecified, without perforation or abscess without bleeding (principal); I10 Essential (primary) hypertension; Z88.1 Allergy status to other antibiotic agents; Z79.899 Other long term (current) drug therapy
CPT/HCPCS: 81002; 99283

== ENCOUNTER 2017-12-01 09:02 | Emergency (ER) | payer OTHER ==
[~2017-12-01] VITALS: Ht 177.8 cm; Wt 92.1 kg
[2017-12-01 09:04] VITALS: BP 128/91
[2017-12-01] MEDS ORDERED: KETOROLAC 15 MG/ML VIAL IVP ONE (09:35)
[2017-12-01] MEDS ORDERED: NACL 0.9% 1,000 ML IV ONE (09:35)
[2017-12-01 09:58] LABS: BASOPHILS # (AUTO) 0.1 K/uL (0.00-0.22); BASOPHILS % (AUTO) 1.8 % (0.0-2.0); EOSINOPHILS # (AUTO) 0.2 K/uL (0-0.4); EOSINOPHILS % (AUTO) 3.4 % (0.0-4.0); HEMATOCRIT 41.8 % (36-52); HEMOGLOBIN 13.1 g/dL (12.0-18.0); LYMPHOCYTES # (AUTO) 1.4 K/uL (2.0-11.5); LYMPHOCYTES % (AUTO) 28.3 % (20.5-51.1); MEAN CORPUSCULAR HEMOGLOBIN 24 pg (27-31); MEAN CORPUSCULAR HGB CONC 31 g/dL (33-37); MEAN CORPUSCULAR VOLUME 76.8 fL (80-94); MONOCYTES # (AUTO) 0.3 K/uL (0.8-1.0); NEUTROPHILS # (AUTO) 3.1 K/uL (1.8-7.7); NEUTROPHILS % (AUTO) 60.5 % (42.2-75.2); PLATELET COUNT (AUTO) 161 K/uL (140-450); RED BLOOD CELL COUNT(AUTO) 5.45 MIL/uL (4.20-6.10); RED CELL DISTRIBUTION WIDTH 15.5 % (11.6-13.7); WHITE BLOOD COUNT (AUTO) 5.1 K/uL (4.8-10.8)
[2017-12-01 10:14] LABS: PROTHROMBIN TIME 10.4 secs (10.8-13.4)
[2017-12-01 10:23] LABS: ANION GAP 12.3 (8-16); CARBON DIOXIDE 26.1 mmol/L (21-32); CREATININE 1.6 mg/dL (0.7-1.3); POTASSIUM 3.4 mmol/L (3.5-5.1)
[2017-12-01 10:30] LABS: ALBUMIN 3.3 g/dL (3.4-5.0); TOTAL BILIRUBIN 0.3 mg/dL (0.0-1.0)
[2017-12-01] MEDS ORDERED: SULFAMETH/TRIMETH DS 800/160MG 1 TAB PO ONE (12:15)
[2017-12-01 12:42] VITALS: BP 154/92
[2017-12-02] MEDS ORDERED: CIPR500T4 PO (13:45)
[2017-12-02] MEDS ORDERED: METR250T2 PO (13:45)
[2017-12-02] MEDS ORDERED: ACET-5629 PO (13:48)
== END 2017-12-01 12:42 | disposition home or self-care (01) ==
LOC: MED 09:02
DX: K57.92 Diverticulitis of intestine, part unspecified, without perforation or abscess without bleeding (principal); I10 Essential (primary) hypertension; Z79.899 Other long term (current) drug therapy; Z88.1 Allergy status to other antibiotic agents
CPT/HCPCS: 36415; 71045; 74021; 80053; 83605; 84484; 85025; 85610; 85730; 87040; 93005; 96361; 96374; 99285; J1885

== ENCOUNTER 2017-12-02 05:14 | Inpatient (IN) | payer OTHER ==
[~2017-12-02] VITALS: Ht 177.8 cm; Wt 92.1 kg
[2017-12-02 05:19] VITALS: BP 159/103
--- NOTE | 2017-12-02 05:19 | NUR ---
TO BED # 9 AMBULATORY, REPORT GIVEN TO MONO RICH
[2017-12-02] MEDS ORDERED: ONDANSETRON 4 MG/2 ML VIAL IVP ONE (05:30)
[2017-12-02] MEDS ORDERED: NACL 0.9% 1,000 ML IV ONE (05:30)
[2017-12-02] MEDS ORDERED: KETOROLAC 30 MG/ML VIAL IVP ONE (05:30)
--- NOTE | 2017-12-02 05:49 | NUR ---
PT TAKEN TO CT
--- NOTE | 2017-12-02 05:50 | NUR ---
PT BIB SELF C/O LOWER ABD PAIN X1 WEEK. PT C/O TENDERNESS TO LEFT LOWER QUADRANT, ABD IS FLAT, SOFT, ACTIVE BS X4. PT HAS NAUSEA AND DIARRHEA WELL. PT IS LAYING IN BED, AWAKE AND ACTING APPROPRIATE. PMH DIVERTICULITIS
[2017-12-02 06:05] LABS: BASOPHILS % (AUTO) 0.3 % (0.0-2.0); EOSINOPHILS # (AUTO) 0.2 K/uL (0-0.4); EOSINOPHILS % (AUTO) 2.4 % (0.0-4.0); HEMATOCRIT 42.2 % (36-52); HEMOGLOBIN 13.3 g/dL (12.0-18.0); LYMPHOCYTES % (AUTO) 26.3 % (20.5-51.1); MEAN CORPUSCULAR HEMOGLOBIN 24 pg (27-31); MEAN CORPUSCULAR HGB CONC 31 g/dL (33-37); MEAN CORPUSCULAR VOLUME 76.8 fL (80-94); MONOCYTES # (AUTO) 0.5 K/uL (0.8-1.0); MONOCYTES % (AUTO) 6.2 % (1.7-9.3); NEUTROPHILS % (AUTO) 64.8 % (42.2-75.2); PLATELET COUNT (AUTO) 160 K/uL (140-450); WHITE BLOOD COUNT (AUTO) 7.7 K/uL (4.8-10.8)
[2017-12-02 06:22] LABS: ANION GAP 11.4 (8-16); CARBON DIOXIDE 28.2 mmol/L (21-32); POTASSIUM 3.6 mmol/L (3.5-5.1)
[2017-12-02 06:23] LABS: ALBUMIN 3.4 g/dL (3.4-5.0); CREATININE 1.6 mg/dL (0.7-1.3); TOTAL BILIRUBIN 7.3 mg/dL (0.0-1.0)
[2017-12-02] MEDS ORDERED: CLINDAMYCIN 300 MG in DEXTROSE 5% 50 ML IV ONE (06:25)
[2017-12-02] MEDS ORDERED: MORPHINE SULFATE 4 MG/ML SYR IVP ONE (06:25)
[2017-12-02] MEDS ORDERED: metroNIDAZOLE 500 MG/NS PREMIX 100 ML IV ONE (06:25)
[2017-12-02 06:26] LABS: APPEARANCE,URINE CLEAR (CLEAR); BILIRUBIN,URINE NEGATIVE (NEGATIVE); BLOOD, URINE NEGATIVE (NEGATIVE); COLOR,URINE YELLOW (YELLOW); LEUKOCYTE ESTERASE ,URINE NEGATIVE (NEGATIVE); NITRITE, URINE NEGATIVE (NEGATIVE); UGLUCOSE NEGATIVE (NEGATIVE)
--- NOTE | 2017-12-02 06:27 | NUR ---
Dr. Greene evaluating patient
[2017-12-02 06:39] LABS: BARBITURATE, URINE NEGATIVE ng/ml (NEG <=200); BENZODIAZEPINE, URINE NEGATIVE ng/mL (NEG <=200); CANNABINOID, URINE NEGATIVE ng/mL (NEG <=50); COCAINE, URINE NEGATIVE ng/mL (NEG <=300); OPIATE, URINE NEGATIVE ng/mL (NEG <=2000); PHENCYCLIDINE SCREEN,URINE NEGATIVE ng/mL (NEG <=25)
[2017-12-02] MEDS ORDERED: CLINDAMYCIN 600 MG/4 ML VIAL ONE (06:39)
[2017-12-02] MEDS ORDERED: MORPHINE SULFATE 2 MG/ML SYR IVP PRN (06:45)
[2017-12-02] MEDS ORDERED: ONDANSETRON 4 MG/2 ML VIAL IVP PRN (06:45)
[2017-12-02] MEDS ORDERED: MORPHINE SULFATE 4 MG/ML SYR IVP PRN (06:45)
[2017-12-02] MEDS ORDERED: hydrALAZINE 20 MG/ML VIAL IVP PRN (06:45)
[2017-12-02] MEDS ORDERED: DEXT 5% /NACL 0.9% 1,000 ML IV SCH (06:45)
[2017-12-02] MEDS ORDERED: LEVOFLOXACIN 500 MG/D5W PREMIX 100 ML IV SCH (06:45)
[2017-12-02] MEDS ORDERED: ACETAMINOPHEN 325 MG TAB PO PRN (06:45)
[2017-12-02] MEDS ORDERED: HYDROcodone/APAP 5/325 MG 1 TAB TAB PO PRN ×2 (06:45)
[2017-12-02] MEDS ORDERED: LORazepam 2 MG/ML VIAL IVP PRN (06:45)
--- NOTE | 2017-12-02 07:20 | NUR ---
Patient will be admitted to care of DR HUYNH. Admited to MED-SURG. Will go to room 118. Belongings list completed. Report to HILARIO PEÑA .
--- NOTE | 2017-12-02 07:50 | NUR ---
PATIENT WAS BROUGHT TO THE UNIT VIA WHEELCHAIR FROM THE ER. RECEIVED BEDSIDE REPORT. PATIENT IS AAOX4, NO SIGNS AND SYMPTOMS OF ACUTE DISTRESS NOTED AT THIS TIME. HAS IV TO THE RIGHT FOREARM 20G, SALINE LOCK AT THIS TIME. PATIENT IS ABLE TO AMBULATE. DISCUSSED PLAN OF CARE WITH PATIENT AND HE VERBALIZED UNDERSTANDING. ORIENTED PATIENT TO THE ROOM, EXPLAINED THE CALL LIGHT, ALL NEEDS MET AT THIS TIME. DENIES PAIN AT THIS TIME. BED IN LOWEST POSITION, SIDE RAILS UP X2, CALL LIGHT WITHIN REACH. MRSA SCREEN DONE. WILL FOLLOW THROUGH WITH ORDERS. WILL CONTINUE TO MONITOR.
[2017-12-02 08:00] VITALS: BP 133/87
[2017-12-02] MEDS: CARVEDILOL 12.5 MG TAB PO SCH ×2 (08:00→08:23)
--- NOTE | 2017-12-02 08:39 | NUR ---
PATIENT HAS BEEN SCREENED AND CATEGORIZED MODERATE NUTRITION RISK. PATIENT WILL BE SEEN WITHIN 3-5 DAYS OF ADMISSION. 12/04/17 12/06/[address]
[2017-12-02] MEDS ORDERED: ENOXAPARIN 40 MG/0.4 ML SYR SUBQ SCH (09:00)
[2017-12-02] MEDS ORDERED: metroNIDAZOLE 500 MG/NS PREMIX 100 ML IV SCH (13:00)
[2017-12-02] MEDS ORDERED: METR250T2 PO (13:45)
[2017-12-02] MEDS ORDERED: CIPR500T4 PO (13:45)
[2017-12-02] MEDS ORDERED: ACET-5629 PO (13:48)
--- NOTE | 2017-12-02 15:50 | NUR ---
PATIENT REQUESTING COLACE STATING THAT HE IS CONSTIPATED. WON'T SIGN DISCHARGE PAPERS UNTIL GIVEN COLACE.
[2017-12-02] MEDS ORDERED: DOCUSATE SODIUM 100 MG GELCAP PO PRN (15:55)
--- NOTE | 2017-12-02 16:15 | NUR ---
PATIENTS DISCHARGE ORDER IS IN PLACE. GAVE PATIENT INSTRUCTIONS TO FOLLOW UP WITH PRIMARY CARE PHYSICIAN. MADE PATIENT AWARE OF PRESCRIPTION IN DISCHARGE PACKET. EDUCATED PATIENT ON SIGNS AND SYMPTOMS OF DISTRESS TO SEEK EMERGENCY MEDICAL ATTENTION. PATIENT VERBALIZED UNDERSTANDING. REMOVED IV FROM SITE. CATHETER INTACT. REMOVED ID BAND. ALL BELONGINGS ARE WITH PATIENT. WILL WALK OUT WITH PATIENT.
--- NOTE | 2017-12-03 07:57 | NUR ---
FAXED H&P AND DISCHARGE SUMMARY TO [facility] [phone]
== END 2017-12-02 16:15 | disposition home or self-care (01) | DRG 244 ==
LOC: MED 05:14 → MTU 06:52
PROVIDERS: ADMIT Hospitalist; ATTEND Hospitalist
DX: K57.32 Diverticulitis of large intestine without perforation or abscess without bleeding (principal); N17.9 Acute kidney failure, unspecified; I10 Essential (primary) hypertension; R74.0 Nonspecific elevation of levels of transaminase and lactic acid dehydrogenase [LDH]; I25.10 Atherosclerotic heart disease of native coronary artery without angina pectoris; Z88.1 Allergy status to other antibiotic agents; Z79.899 Other long term (current) drug therapy; E80.4 Gilbert syndrome
CPT/HCPCS: 36415; 76700; 80053; 80305; 81003; 83605; 83690; 85025; 87040; 87081; 96361; 96374; 96375; 99285; J1650; J1885; J1956; J2270; J2405; J3490; J7042; Q0092

== ENCOUNTER 2017-12-02 20:59 | Inpatient (IN) | payer OTHER ==
[~2017-12-02] VITALS: Ht 177.8 cm; Wt 91.6 kg
[~2017-12-02 20:59] MED LIST changes: +ACET-5629 PO; +CIPR500T4 PO
[2017-12-02 21:04] VITALS: BP 150/90
--- NOTE | 2017-12-02 21:07 | NUR ---
TO BED # 7 ambulatory, report given to Kelsey Maxwell
--- NOTE | 2017-12-02 21:07 | NUR ---
52/M CAME IN W C/O LOWER ABD PAIN AND CONSTIPATION X 4 DAYS. PER PT HE WAS DISCHARGED TODAY FOR DIVERTICULITIS BUT PAIN HAS BEEN CONSTANT AND NONIMPROVING. ABD SOFT, ROUND, BS ACTIVE X4, +TENDERNESS DIFFUSED, DENIES N/V, FEVER/CHILLS. PMH: HTN, DIVERTICULOSIS
--- NOTE | 2017-12-02 21:34 | NUR ---
Dr. Pretty evaluating patient at bedside.
[2017-12-02] MEDS ORDERED: MORPHINE SULFATE 4 MG/ML SYR IVP ONE (21:40)
[2017-12-02] MEDS ORDERED: LEVOFLOXACIN 500 MG/D5W PREMIX 100 ML IV ONE (21:40)
[2017-12-02] MEDS ORDERED: ONDANSETRON 4 MG/2 ML VIAL IVP ONE (21:40)
[2017-12-02] MEDS ORDERED: NACL 0.9% 1,000 ML IV ONE (21:40)
[2017-12-02] MEDS ORDERED: metroNIDAZOLE 500 MG/NS PREMIX 100 ML IV ONE (21:40)
[2017-12-02] MEDS ORDERED: LACTULOSE 20 GM/30 ML UDC PO ONE (22:20)
[2017-12-03] MEDS ORDERED: ONDANSETRON 4 MG/2 ML VIAL IVP ONE (00:20)
--- NOTE | 2017-12-03 01:10 | NUR ---
PT RESTING IN BED, RR EVEN AND UNLABORED, VSS, ALL NEEDS MET AT THIS TIME.
--- NOTE | 2017-12-03 01:15 | NUR ---
Dr. Pretty re-evaluating patient at bedside.
[2017-12-03] MEDS ORDERED: NACL 0.9% 1,000 ML IV ONE (01:25)
[2017-12-03] MEDS ORDERED: MORPHINE SULFATE 2 MG/ML SYR IVP ONE (01:25)
[2017-12-03] MEDS ORDERED: METOCLOPRAMIDE 10 MG/2 ML INJ VIAL IVP ONE (01:25)
[2017-12-03] MEDS ORDERED: HYDROcodone/APAP 5/325 MG 1 TAB TAB PO PRN ×2 (02:10)
[2017-12-03] MEDS ORDERED: LORazepam 2 MG/ML VIAL IVP PRN (02:10)
[2017-12-03] MEDS ORDERED: ONDANSETRON 4 MG/2 ML VIAL IVP PRN (02:10)
[2017-12-03] MEDS ORDERED: ACETAMINOPHEN 325 MG TAB PO PRN (02:10)
[2017-12-03] MEDS ORDERED: POLYETHYLENE GLYCOL 17 GM/PKT PO PRN (02:15)
--- NOTE | 2017-12-03 02:30 | NUR ---
Patient will be admitted to care of [facility]. Admited to MS. Will go to room 118. Belongings list completed. Report to STEPHEN RICH.
--- NOTE | 2017-12-03 02:55 | NUR ---
ADMITTED PATIENT TO THE MED-SURG UNIT. PATIENT AWAKE ALERT ORIENTED X4, HAD BOWEL MOVEMENT X1. NO S/S OF DISTRESS NOTED, RESPIRATION EVEN AND UNLABORED, ON ROOM AIR. IV PATENT AND INTACT. CALL LIGHT WITHIN REACH, SAFETY MEASURE ENSURED, WILL CONTINUE TO MONITOR.
[2017-12-03] MEDS: DEXT 5% / NACL 0.45% 1,000 ML IV SCH ×2 (03:19→15:51)
--- NOTE | 2017-12-03 03:20 | NUR ---
START IV FLUID OF D51/2NS
[2017-12-03 03:25] VITALS: BP 146/87
[2017-12-03] MEDS: METOCLOPRAMIDE 10 MG/2 ML INJ VIAL IVP SCH ×3 (05:15→21:03)
[2017-12-03] MEDS: metroNIDAZOLE 500 MG/NS PREMIX 100 ML IV SCH ×3 (05:16→21:02)
--- NOTE | 2017-12-03 05:16 | NUR ---
FLAGYL 500MG START
[2017-12-03] MEDS: MORPHINE SULFATE 4 MG/ML SYR IVP PRN ×3 (05:27→21:29)
--- NOTE | 2017-12-03 05:27 | NUR ---
MORPHINE 2MG GIVEN FOR ABDOMINAL PAIN 12/24. PATIENT BP 124/74, HR 59, O2SAT 99%
--- NOTE | 2017-12-03 07:19 | NUR ---
ENDORSED PLAN OF CARE TO DAY SHIFT RN, PATIENT IS IN STABLE CONDITION.
--- NOTE | 2017-12-03 07:20 | NUR ---
RECEIVED REPORT FROM PM NURSE AT THE BEDSIDE. PT SLEEPING ON HIS BED. INTRODUCED SELF AND UPDATED BOARD. IV SITE ON RT HAND 22 G. IV INFUSING WELL. NO SIGN OF DISTRESS. BED IN LOWER POSITION, SIDE RAILS UPX2. WILL CONTINUE TO MONITOR PT.
[2017-12-03 08:00] VITALS: BP 136/80
[2017-12-03] MEDS ORDERED: NON-FORMULARY ITEM (Lisinopril/Hydrochlorothiazide (Lisinopril-Hctz 20-12.5 mg Tab) 1 TAB) PO SCH (09:00)
[2017-12-03] MEDS: LISINOPRIL 20 MG TAB PO SCH ×2 (09:52→21:03)
[2017-12-03] MEDS: DOCUSATE SODIUM 100 MG GELCAP PO SCH ×2 (09:52→21:00)
[2017-12-03] MEDS: CARVEDILOL 12.5 MG TAB PO SCH ×2 (09:53→21:02)
[2017-12-03] MEDS: HYDROCHLOROTHIAZIDE 25 MG TAB PO SCH ×2 (09:54→21:02)
[2017-12-03] MEDS: ENOXAPARIN 40 MG/0.4 ML SYR SUBQ SCH (09:57)
--- NOTE | 2017-12-03 10:06 | NUR ---
ADMINISTERED MEDS TO PT. TOLERATED WELL. NO SIGN OF DISTRESS. PT STATES TO HAVE THE PAIN 9/10 IN HIS ABDOMEN. WILL MEDICATE HIM WITH PAIN MEDS. ALL THE SAFETY MEASURE IN PLACE. . MEDICATED PT WITH PAIN MED. WILL REASSESS HIS PAIN LEVEL IN 1 HR. WILL CONTINUE TO MONITOR PT.
--- NOTE | 2017-12-03 10:11 | NUR ---
PATIENT HAS BEEN SCREENED AND CATEGORIZED HIGH NUTRITION RISK. PATIENT WILL BE SEEN WITHIN 1-2 DAYS OF ADMISSION. 12/03/17 12/04/[address]
--- NOTE | 2017-12-03 12:51 | NUR ---
CM NOTE INITIAL REVIEW FAXED TO [facility] [phone] SANDEE # [phone]
--- NOTE | 2017-12-03 13:11 | NUR ---
ADMINISTER FAGYL AND REGLAN TO THE PT. TOLERATED WELL. NO SIGN OF DISTRESS. PT HAS NOT EATEN HIS LUNCH. STATES THAT WILL EAT LATER. ALL SAFETY MEASURE IN PLACE. WILL CONTINUE TO MONITOR PT.
--- NOTE | 2017-12-03 13:16 | NUR ---
ADMINISTERED MEDS ORDERED TO PT. TOLERATED WELL. NO SIGN OF DISTRESS. ALL SAFETY MEASURE IN PLACE. WILL CONTINUE TO MONITOR PT.
--- NOTE | 2017-12-03 14:25 | NUR ---
12/03/17 RD INITIAL ASSESSMENT COMPLETED PLEASE REFER TO NUTRITION ASSESSMENT UNDER CARE ACTIVITY FOR ESTIMATED NUTRITIONAL NEEDS. 1. CONTINUE CLEAR LIQUID DIET TOLERATED 2. WHEN/IF MEDICALLY APPROPRIATE, ADVANCE TOLERATED TO BLAND DIET 3. RD TO FOLLOW-UP 3-5 DAYS, MODERATE RISK JULIO C HERBERT, RD
--- NOTE | 2017-12-03 15:57 | NUR ---
ADMINISTERED IV FLUIDS TO PT. TOLERATED WELL PT ON PHONE , TALKING TO FRIEND. NO SIGN OF DISTRESS NOTED. WILL CONTINUE TO MONITOR PT.
[2017-12-03 16:00] VITALS: BP 137/82
--- NOTE | 2017-12-03 16:50 | NUR ---
ADMINISTERED TYLENOL TP PT. COMPLAINING OF LOMAS NAD THE TEMP 100.00. TOLERATED WELL. WILL REASSESS THE TEMP AND LOMAS IN 1 HOUR. WILL CONTINUE TO MONITOR PT.
--- NOTE | 2017-12-03 19:25 | NUR ---
ENDORSED PT TO PM NURSE. PT IN STABLE CONDITION.
--- NOTE | 2017-12-03 19:26 | NUR ---
PATIENT REPORT RECEIVED FROM MORNING NURSE AT BEDSIDE. PATIENT IS AWAKE, ALERT AND ORIENTED. NO SIGNS AND SYMPTOMS OF DISTRESS NOTED. IV SITE NOTED ON RIGHT AC, IV FLUID INFUSING WELL. PLAN OF CARE DISCUSSED WITH PATIENT, PATIENT VERBALIZED UNDERSTANDING. BED IN LOWEST POSITION, SIDE RAILS UP AND CALL LIGHT WITHIN REACH. WILL CONTINUE TO MONITOR
--- NOTE | 2017-12-03 21:00 | NUR ---
MEDICATION EDUCATION GIVEN. PATIENT VERBALIZED UNDERSTANDING, MEDICATION ADMINISTERED ORDERED. PATIENT TOLERATED WELL. WILL CONTINUE TO MONITOR
--- NOTE | 2017-12-03 23:30 | NUR ---
CHECKED ON PATIENT. PATIENT ON THE PHONE WITH FAMILY. NO SIGNS AND SYMPTOMS OF DISTRESS NOTED. WILL CONTINUE TO MONITOR
[2017-12-04] VITALS: BP 130/85
--- NOTE | 2017-12-04 02:00 | NUR ---
CHECKED ON PATIENT. PATIENT IS RESTING COMFORTABLY IN BED. NO SIGNS AND SYMPTOMS OF DISTRESS NOTED. BREATHING EVEN AND UNLABORED. WILL CONTINUE TO MONITOR
[2017-12-04] MEDS: METOCLOPRAMIDE 10 MG/2 ML INJ VIAL IVP SCH (04:22)
[2017-12-04] MEDS: metroNIDAZOLE 500 MG/NS PREMIX 100 ML IV SCH (04:22)
[2017-12-04] MEDS: DEXT 5% / NACL 0.45% 1,000 ML IV SCH (04:31)
--- NOTE | 2017-12-04 04:31 | NUR ---
CHECKED ON PATIENT. PATIENT IS ASLEEP. NO SIGNS AND SYMPTOMS OF DISTRESS NOTED. BREATHING EVEN AND UNLABORED. WILL CONTINUE TO MONITOR
--- NOTE | 2017-12-04 07:24 | NUR ---
PATIENT REPORT GIVEN TO MORNING NURSE AT BEDSIDE. PATIENT IS IN STABLE CONDITION
--- NOTE | 2017-12-04 07:25 | NUR ---
RECEIVED REPORT FROM UI DEVELOPER WITH ANGULAR JS NURSE. PATIENT LYING DOWN IN BED SLEEPING, AROUSABLE BY VOICE. DENIES ANY PAIN. ABLE TO AMBULATE TO BATHROOM AND BACK TO BED WITH STEADY GAIT. REPORTS WANTING TO GO HOME. DENIES ANY NAUSEA/VOMITING OVER NIGHT, NONE REPORTED BY NIGHT RN. RESPIRATIONS EVEN, UNLABORED, ON ROOM AIR. AAOX4, CALM, COOPERATIVE, SKIN COLOR APPROPRIATE TO ETHNICITY, WARM TO TOUCH. LUNGS CTA ON ALL LOBES. ABDOMEN SOFT, NON DISTENDED. IV SITE INTACT, PATENT, ON IVF PER MD ORDERS. REVIEWED PLAN OF CARE WITH PATIENT. PATIENT VERBALIZED UNDERSTANDING. SAFETY MEASURES IN PLACE, CALL LIGHT WITHIN REACH. WILL CONTINUE TO MONITOR.
[2017-12-04 07:38] LABS: BASOPHILS % (AUTO) 0.4 % (0.0-2.0); EOSINOPHILS # (AUTO) 0.2 K/uL (0-0.4); EOSINOPHILS % (AUTO) 2.1 % (0.0-4.0); HEMATOCRIT 39.1 % (36-52); HEMOGLOBIN 12.6 g/dL (12.0-18.0); LYMPHOCYTES # (AUTO) 1.5 K/uL (2.0-11.5); MEAN CORPUSCULAR HEMOGLOBIN 25 pg (27-31); MEAN CORPUSCULAR HGB CONC 32 g/dL (33-37); MEAN CORPUSCULAR VOLUME 76.8 fL (80-94); MONOCYTES # (AUTO) 1.1 K/uL (0.8-1.0); MONOCYTES % (AUTO) 10.3 % (1.7-9.3); NEUTROPHILS # (AUTO) 7.4 K/uL (1.8-7.7); NEUTROPHILS % (AUTO) 72.2 % (42.2-75.2); PLATELET COUNT (AUTO) 144 K/uL (140-450); RED BLOOD CELL COUNT(AUTO) 5.08 MIL/uL (4.20-6.10); RED CELL DISTRIBUTION WIDTH 15.6 % (11.6-13.7); WHITE BLOOD COUNT (AUTO) 10.2 K/uL (4.8-10.8)
[2017-12-04 08:00] VITALS: BP 158/95
[2017-12-04 08:31] LABS: ALBUMIN 2.7 g/dL (3.4-5.0); ANION GAP 10.4 (8-16); CARBON DIOXIDE 25.1 mmol/L (21-32); CREATININE 1.5 mg/dL (0.7-1.3); POTASSIUM 3.5 mmol/L (3.5-5.1); TOTAL BILIRUBIN 0.8 mg/dL (0.0-1.0)
[2017-12-04] MEDS: HYDROCHLOROTHIAZIDE 25 MG TAB PO SCH (08:53)
[2017-12-04] MEDS: DOCUSATE SODIUM 100 MG GELCAP PO SCH (08:54)
[2017-12-04] MEDS: LISINOPRIL 20 MG TAB PO SCH (08:55)
[2017-12-04] MEDS: CARVEDILOL 12.5 MG TAB PO SCH (08:55)
--- NOTE | 2017-12-04 08:59 | NUR ---
PATIENT SITTING IN BED WATCHING TV. NO DISTRESS NOTED. DENIES ANY PAIN. SCHEDULED MEDICATIONS DUE GIVEN. PATIENT PULLED OUT IV, REFUSED NEW IV LINE INSERTION. PATIENT VERBALIZES THAT HE WANTS TO GO HOME TODAY. HE WILL WAIT FOR MD TO COME TALK TO HIM. SAFETY MEASURES IN PLACE, CALL LIGHT WITHIN REACH. WILL CONTINUE TO MONITOR.
[2017-12-04] MEDS: ENOXAPARIN 40 MG/0.4 ML SYR SUBQ SCH (09:00)
--- NOTE | 2017-12-04 10:00 | NUR ---
PATIENT WISHES TO LEAVE AMA DUE TO WANTING TO GO HOME AND FEELING BETTER. DID NOT HAVE ANY NAUSEA/VOMITING SINCE ADMITTED TO HOSPITAL. REPORTS THAT HE WILL CHANGE HIS DIET WHEN HE GETS HOME. EXPLAINED RISKS OF LEAVING AMA AND WISHES TO CONTINUE TO LEAVE AMA. NOTIFIED DR. RAINEY. DR. RAINEY VERBALIZED UNDERSTANDING OF PATIENT LEAVING AMA. PATIENT SIGNED AMA PAPERS. ID BANDS REMOVED. ESCORTED PATIENT DOWN TO LOBBY VIA STEADY AMBULATION. PATIENT LEFT AMA AT THIS TIME IN STABLE CONDITION.
== END 2017-12-04 10:00 | disposition left against medical advice (07) | DRG 244 ==
LOC: MED 20:59 → MTU 12-03 02:14 → OBSVTOIN 12-03 14:14
PROVIDERS: ADMIT Hospitalist; ATTEND Hospitalist
DX: K57.32 Diverticulitis of large intestine without perforation or abscess without bleeding (principal); N17.0 Acute kidney failure with tubular necrosis; I10 Essential (primary) hypertension; I25.10 Atherosclerotic heart disease of native coronary artery without angina pectoris; Z88.1 Allergy status to other antibiotic agents; Z79.899 Other long term (current) drug therapy; E87.1 Hypo-osmolality and hyponatremia; E83.42 Hypomagnesemia; E83.51 Hypocalcemia; E44.0 Moderate protein-calorie malnutrition
CPT/HCPCS: 96361; 96365; 96367; 96375; 96376; 99285; G0378; 36415; 80053; 83735; 85025; 87081; J1650; J1956; J2270; J2405; J2765; J3490

== ENCOUNTER 2017-12-15 02:15 | Emergency (ER) | payer OTHER ==
[~2017-12-15] VITALS: Ht 177.8 cm; Wt 93.0 kg
--- NOTE | 2017-12-15 02:17 | NUR ---
pt ambulated to er bed 03
[2017-12-15 02:22] VITALS: BP 136/56
--- NOTE | 2017-12-15 02:26 | NUR ---
PATIENT PRESENTS TO ED WTIH "ALLERGIC REACTION TO AMOXICILLIN". PATIENT STATES HE HAS AN ALLERGY TO AMOXICILLIN BUT STATES HE TOOK AMOXICILLIN FOR "DIVERTICULITIS". PATIENT HAS N/V, PATIENT STATES ABDOMINAL PAIN 8/10 AT THIS TIME NON RADIATING. PATIENTS SKIN IS DRY, ELASTIC AND INTACT AT THIS TIME WITH NO OBVIOUS RASH. PATIENT STATES HE IS "ITCHY ALL OVER". NO SIGNS OR SYMPTOMS OF ACUTE DISTRESS NOTED. ER MD MADE AWARE OF PATIENT STATUS. WILL CONTINUE TO MONITOR.
[2017-12-15] MEDS ORDERED: diphenhydrAMINE 50 MG/ML VIAL IM ONE (02:30)
[2017-12-15] MEDS ORDERED: FAMOTIDINE 20 MG TAB PO ONE (02:30)
[2017-12-15] MEDS ORDERED: DEXAMETHASONE 10 MG/ML VIAL IM ONE (02:30)
--- NOTE | 2017-12-15 04:13 | NUR ---
Patient discharged with v/s stable. Written and verbal after care instructions given and explained. Patient alert, oriented and verbalized understanding of instructions. Ambulatory with steady gait. All questions addressed prior to discharge. ID band removed. Patient advised to follow up with PMD. Rx of BENADRYL, PEPCID, PREDNISONE given. Patient educated on indication of medication including possible reaction and side effects. Opportunity to ask questions provided and answered.
[2017-12-15 04:14] VITALS: BP 132/66
== END 2017-12-15 04:13 | disposition home or self-care (01) ==
LOC: MED 02:15
DX: L29.9 Pruritus, unspecified (principal); T36.0X5A Adverse effect of penicillins, initial encounter; Y92.89 Other specified places as the place of occurrence of the external cause
CPT/HCPCS: 96372; 99284; J1100; J1200

== ENCOUNTER 2017-12-15 16:29 | Inpatient (IN) | payer OTHER ==
[~2017-12-15] VITALS: Ht 177.8 cm; Wt 93.4 kg
[~2017-12-15 16:29] MED LIST changes: -LEVO750T2 PO; -METR500T1 PO
[2017-12-15 16:33] VITALS: BP 104/64
--- NOTE | 2017-12-15 16:41 | NUR ---
TAKEN VIA WC TO BED 10. DR MUÑOZ NOTIFIED OF PT STATUS
--- NOTE | 2017-12-15 16:48 | NUR ---
PATIENT PRESENTS TO ED WITH THE CHIEF C/O CHEST PAIN . PT STATES PAIN STARTED ONE AND HALF HOUR AGO. PER PT HE TOOK ANTIHYPERTENSIVE MEDICINE BEFORE HE COME TO ER. DENIES N/V/D; SKIN IS PINK/WARM/DRY; AAOX4 WITH EVEN AND STEADY GAIT; HR EVEN AND REGULAR; PT DENIES ANY FEVER, CP, SOB, OR COUGH AT THIS TIME; PATIENT STATES CHEST PAIN OF 1/10 AT THIS TIME; VSS; PATIENT POSITIONED FOR COMFORT; HOB ELEVATED; BEDRAILS UP X2; BED DOWN. ER MD MADE AWARE OF PT STATUS.
--- NOTE | 2017-12-15 16:51 | NUR ---
AT BEDSIDE EVALUATING PT.
[2017-12-15] MEDS ORDERED: KETOROLAC 30 MG/ML VIAL IVP ONE (17:00)
[2017-12-15 17:29] LABS: HEMATOCRIT 43.1 % (36-52); HEMOGLOBIN 13.5 g/dL (12.0-18.0); MEAN CORPUSCULAR HEMOGLOBIN 24 pg (27-31); MEAN CORPUSCULAR HGB CONC 31 g/dL (33-37); MEAN CORPUSCULAR VOLUME 77.4 fL (80-94); PLATELET COUNT (AUTO) 213 K/uL (140-450); RED BLOOD CELL COUNT(AUTO) 5.57 MIL/uL (4.20-6.10); RED CELL DISTRIBUTION WIDTH 15.6 % (11.6-13.7); WHITE BLOOD COUNT (AUTO) 14.1 K/uL (4.8-10.8)
[2017-12-15 17:46] LABS: PROTHROMBIN TIME 10.3 secs (10.8-13.4)
[2017-12-15 17:47] LABS: LYMPHOCYTES % (MANUAL) 12 % (20-46); MONOCYTES % (MANUAL) 2 % (5-12)
[2017-12-15 17:50] LABS: ALBUMIN 3.6 g/dL (3.4-5.0); CARBON DIOXIDE 19.2 mmol/L (21-32); CREATININE 2.8 mg/dL (0.7-1.3); POTASSIUM 4.2 mmol/L (3.5-5.1); TOTAL BILIRUBIN 0.4 mg/dL (0.0-1.0)
[2017-12-15] MEDS ORDERED: ONDANSETRON 4 MG/2 ML VIAL IVP PRN (18:50)
[2017-12-15] MEDS ORDERED: ACETAMINOPHEN 325 MG TAB PO PRN (18:50)
[2017-12-15] MEDS ORDERED: LORazepam 2 MG/ML VIAL IVP PRN (18:50)
[2017-12-15] MEDS ORDERED: HYDROcodone/APAP 5/325 MG 1 TAB TAB PO PRN ×2 (18:50)
[2017-12-15] MEDS ORDERED: MORPHINE SULFATE 4 MG/ML SYR IVP PRN (18:50)
--- NOTE | 2017-12-15 19:26 | NUR ---
ENDORSED TO MASTER AUTOMOTIVE TECHNICIAN RN. PT ON STABLE CONDITION.
[2017-12-15] MEDS: NITROGLYCERIN 2% 1 GM PKT TP SCH (20:00)
--- NOTE | 2017-12-15 20:09 | NUR ---
PATIENT STATES HE WILL NOT STAY IF HE CANNOT GET HIS DIRECTOR OF ENTERPRISE APPLICATIONS FROM HIS CAR. PATIENT HAS BEEN ADVISED THAT HE CANNOT GET HIS CAHRGER IN CASE SOMETHING HAPPENS WHEN HE WALKS OUT OF THE DOOR. DR. ARENAS STATES IT IS OKAY FOR HIM TO WALK OUT TO GET DIRECTOR OF ENTERPRISE APPLICATIONS AT THIS TIME. NADYA METZGER WILL WALK WITH HIM
--- NOTE | 2017-12-15 20:26 | NUR ---
Pt report given to INA RICH. Transfer of care at this time.
--- NOTE | 2017-12-15 20:30 | NUR ---
ADMITTED 52 YEARS OLD MALE FROM ER VIA RCUSHING FOR CC:CP. SEE ADMISSION HISTORY AND ASSESSMENT NURSING. ORIENTED TO ROOM AND UNIT ROUTINES. CALL LIGHT WITHIN REACH. VITAL SIGNS STABLE. CARE BOARD UPDATED.
[2017-12-15] MEDS: DOCUSATE SODIUM 100 MG GELCAP PO SCH (21:36)
[2017-12-16] MEDS: NITROGLYCERIN 2% 1 GM PKT TP SCH ×2 (00:12→05:31)
[2017-12-16 00:22] VITALS: BP 125/74
--- NOTE | 2017-12-16 00:23 | NUR ---
VITAL SIGNS STABLE. AFEBRILE. SLEEPING WELL, EASILY AROUSABLE. NO COMPLAINS. CALL LIGHT WITHIN REACH.
[2017-12-16 01:23] LABS: CREATINE KINASE MB 4.3 ng/mL (0-3.6)
[2017-12-16 04:24] VITALS: BP 105/57
--- NOTE | 2017-12-16 04:25 | NUR ---
ASLEEP EASILY AROUSABLE. NO COMPLAINS. VITAL SIGNS STABLE. AFEBRILE. CALL LIGHT WITHIN REACH.
[2017-12-16 06:24] LABS: BASOPHILS % (AUTO) 0.1 % (0.0-2.0); HEMATOCRIT 40.2 % (36-52); HEMOGLOBIN 12.8 g/dL (12.0-18.0); LYMPHOCYTES % (AUTO) 11.9 % (20.5-51.1); MEAN CORPUSCULAR HEMOGLOBIN 25 pg (27-31); MEAN CORPUSCULAR HGB CONC 32 g/dL (33-37); MEAN CORPUSCULAR VOLUME 76.7 fL (80-94); MONOCYTES # (AUTO) 0.6 K/uL (0.8-1.0); MONOCYTES % (AUTO) 3.5 % (1.7-9.3); NEUTROPHILS # (AUTO) 14.2 K/uL (1.8-7.7); NEUTROPHILS % (AUTO) 84.5 % (42.2-75.2); PLATELET COUNT (AUTO) 184 K/uL (140-450); RED BLOOD CELL COUNT(AUTO) 5.24 MIL/uL (4.20-6.10); RED CELL DISTRIBUTION WIDTH 15.4 % (11.6-13.7); WHITE BLOOD COUNT (AUTO) 16.8 K/uL (4.8-10.8)
--- NOTE | 2017-12-16 07:24 | NUR ---
ENDORSED CARE AT BEDSIDE WITH REANNA RICH, PATIENT IN STABLE CONDITION.
--- NOTE | 2017-12-16 07:26 | NUR ---
RECEIVED REPORT FROM NIGHT RN. PT DENIES PAIN.AAOX4 NO S/S OF ACUTE DISTRESS. IV SITE PATENT AND INTACT. CALL LIGHT WITHIN REACH. SAFETY MEASURES ENSURED. WILL CONTINUE TO MONITOR.
[2017-12-16 07:35] LABS: ANION GAP 13.3 (8-16); CARBON DIOXIDE 24.7 mmol/L (21-32); CREATININE 2.5 mg/dL (0.7-1.3); TOTAL BILIRUBIN 0.4 mg/dL (0.0-1.0)
[2017-12-16 07:36] LABS: MAGNESIUM 1.6 mg/dL (1.8-2.4); PHOSPHORUS 2.8 mg/dL (2.5-4.9)
[2017-12-16 08:00] VITALS: BP 118/74
[2017-12-16] MEDS ORDERED: CARVEDILOL 12.5 MG TAB PO SCH (08:00)
[2017-12-16] MEDS ORDERED: ASPIRIN 81 MG TAB.CHEW PO SCH (09:00)
--- NOTE | 2017-12-16 09:00 | NUR ---
PT RESTING IN BED. PT STATES HE WANTS THE ECHO TEST TO COME SOON OR HE IS GOING TO LEAVE. EXPLAINED THE THE TECH WOULD BE ARRIVING SHORTLY AND THAT THE TEST NEEDED TO BE DONE. PT VERBALIZED UNDERSTANDING.
[2017-12-16] MEDS: DOCUSATE SODIUM 100 MG GELCAP PO SCH (09:10)
[2017-12-16 11:06] LABS: CREATINE KINASE MB 4.7 ng/mL (0-3.6)
[2017-12-16] MEDS ORDERED: amLODIPine 5 MG TAB PO SCH (11:30)
--- NOTE | 2017-12-16 11:44 | NUR ---
PT STATES HE WANTS TO LEAVE AMA. PT CLEARED FROM CARDIO STANDPOINT. DR. MARINA CALLED AND INFORMED OF PT'S WISH TO BE DISCHARGED. PER MD NO DISCHARGE ORDER UNTIL PT IS SEEN MY MD. PT NOTIFIED. PT STATES HE WANTS TO LEAVE NOW. EXPLAINED TO PT THE IMPORTANCE OF HIM WAITING TO SEE HIS DOCTOR AND GETTING HIS RESULTS. PT VERBALIZED UNDERSTANDING BUT SAID THAT NO ONE WOULD CONVINCE HIM TO STAY HE WAS LEAVING. IV TAKEN OUT. TIP INTACT. CHARGE NURSE AT BEDSIDE. PT AMBULATED TO LOBBY. NO S/S OF ACUTE DISTRESS.
[2017-12-16 18:03] LABS: CHOL/HDL RATIO 3.6 (1-4.5)
== END 2017-12-16 11:39 | disposition left against medical advice (07) | DRG 469 ==
LOC: MED 16:29 → MTU 19:09
PROVIDERS: ADMIT Internal Medicine Pulmonary Disease; ATTEND Internal Medicine Pulmonary Disease
DX: N17.9 Acute kidney failure, unspecified (principal); I74.9 Embolism and thrombosis of unspecified artery; I12.0 Hypertensive chronic kidney disease with stage 5 chronic kidney disease or end stage renal disease; I13.11 Hypertensive heart and chronic kidney disease without heart failure, with stage 5 chronic kidney disease, or end stage renal disease; I24.8 Other forms of acute ischemic heart disease; I42.9 Cardiomyopathy, unspecified; R65.10 Systemic inflammatory response syndrome (SIRS) of non-infectious origin without acute organ dysfunction; N18.5 Chronic kidney disease, stage 5; I71.2 Thoracic aortic aneurysm, without rupture; M19.90 Unspecified osteoarthritis, unspecified site; Z53.21 Procedure and treatment not carried out due to patient leaving prior to being seen by health care provider; F41.9 Anxiety disorder, unspecified; I07.1 Rheumatic tricuspid insufficiency; I34.0 Nonrheumatic mitral (valve) insufficiency; K57.92 Diverticulitis of intestine, part unspecified, without perforation or abscess without bleeding; Z91.19 Patient's noncompliance with other medical treatment and regimen; Z88.1 Allergy status to other antibiotic agents; Z79.899 Other long term (current) drug therapy; Z82.49 Family history of ischemic heart disease and other diseases of the circulatory system
CPT/HCPCS: 36415; 71045; 71250; 80053; 82306; 82550; 82553; 83735; 83880; 84100; 84484; 85025; 85379; 85610; 85730; 86886; 86900; 86901; 87081; 93005; 96374; 99285; J1644; J1885

== ENCOUNTER 2018-05-16 15:35 | Emergency (ER) | payer OTHER ==
[~2018-05-16] VITALS: Ht 177.8 cm; Wt 87.1 kg
[~2018-05-16 15:35] MED LIST changes: -ACET-2858 PO; +HYDR-5092 PO
[2018-05-16 15:46] VITALS: BP 146/100
--- NOTE | 2018-05-16 15:48 | NUR ---
PT TRIAGED AND SENT TO ER LOBBY
--- NOTE | 2018-05-16 16:06 | NUR ---
PT AMBULATES TO BED 9
--- NOTE | 2018-05-16 16:15 | NUR ---
52M BIB SELF C/O RECHECK OF WOUND TO SURGICAL INCISION S/P BOWEL RESECTION ON 05/02/18. PT REPORTS OF 9/10 PAIN WITH PUS AND SEROSANGUIONOUS DISCHARGE X 3 DAYS. PT DENIES ANY FEVERS, CHILLS, OR N/V/D. PT IS AOX4 TO PERSON, PLACE, SITUATION, AND TIME. RR ARE EVEN AND UNLABORED. ABD SOFT AND NON TENDER. NAD. AWAITING ER MD YUSUF. WILL CONTINUE TO MONITOR.
[2018-05-16] MEDS ORDERED: LEVOFLOXACIN 500 MG TAB PO ONE (16:45)
[2018-05-16] MEDS ORDERED: KETOROLAC 60 MG/2 ML VIAL IM ONE (16:45)
[2018-05-16] MEDS ORDERED: CLINDAMYCIN 600 MG/4 ML VIAL IM ONE (16:45)
[2018-05-16] MEDS ORDERED: HYDROcodone/APAP 5/325 MG 1 TAB TAB PO ONE (16:45)
--- NOTE | 2018-05-16 17:44 | NUR ---
spoke with pt---dc instructions given by
--- NOTE | 2018-05-16 17:45 | NUR ---
Patient discharged with v/s stable. Written and verbal after care instructions given and explained. Patient alert, oriented and verbalized understanding of instructions. Ambulatory with steady gait. All questions addressed prior to discharge. ID band removed. Patient advised to follow up with PMD. Rx of clindamycin/ tramadol given. Patient educated on indication of medication including possible reaction and side effects. Opportunity to ask questions provided and answered.
[2018-05-16 17:46] VITALS: BP 147/97
== END 2018-05-16 17:45 | disposition home or self-care (01) ==
LOC: MED 15:35
DX: T81.40XA Infection following a procedure, unspecified, initial encounter (principal); K21.9 Gastro-esophageal reflux disease without esophagitis; I10 Essential (primary) hypertension; I71.9 Aortic aneurysm of unspecified site, without rupture; Z88.1 Allergy status to other antibiotic agents; Z88.0 Allergy status to penicillin; Z79.2 Long term (current) use of antibiotics; Z79.891 Long term (current) use of opiate analgesic; Z79.899 Other long term (current) drug therapy; Z98.890 Other specified postprocedural states
CPT/HCPCS: 96372; 99283; J1885; J3490

== ENCOUNTER 2018-05-18 19:22 | Emergency (ER) | payer OTHER ==
[~2018-05-18] VITALS: Ht 177.8 cm; Wt 87.5 kg
[2018-05-18 19:22] VITALS: BP 180/102
--- NOTE | 2018-05-18 19:28 | NUR ---
PT BIBA BLS. TAKEN TO BED 2 Addendum: 05/18/18 at 1936 by MEDSP ABDOMINAL SX SITE ADRIANNE CLEAN/DRY/INTACT. NO REDNESS OR SWELLING.
--- NOTE | 2018-05-18 19:32 | NUR ---
PT BIBA TO ED FOR EVALUTION OF ABDOMINAL PAIN X 1DAY. PT S/P EXPLOR LAP WITH COLECTOMY. STATED HAVE BM TODAY. AAO X X4, GCS 15, ABLE TO SPEAK WITH FULL COMPLETE SENTENCES. RESPIRATIONS EVEN AND UNLABORED, TACHYPNEA 20'S, BL LUNG CLEAR. SKIN WARM/PINK/DRY, +PMSC. ABDOMEN SOFT, NON DISTENDED, HYPERACTIVE BOWEL SOUND X4. STATED PAIN 10/10. CARDI ACMONITOR SR, BP ELEVATED. DR. TAPIA MADE AWARE OF PT STATUS. WILL CONTINUE TO MONITOR
--- NOTE | 2018-05-18 19:38 | NUR ---
PT GCS 15, AMBULATORY WITH STEADY GAIT TO BATHROOM. PT REFUSED TO GIVE URINE SPECIMEN, DR. TAPIA MADE AWARE. WILL CONTINUE TO MONITOR
[2018-05-18] MEDS ORDERED: CLIN300C5 PO (19:47)
[2018-05-18] MEDS ORDERED: TRAM50TA1 PO (19:47)
[2018-05-18] MEDS ORDERED: NACL 0.9% 1,000 ML IV ONE (19:55)
[2018-05-18] MEDS ORDERED: MORPHINE SULFATE 4 MG/ML SYR IVP ONE (20:35)
[2018-05-18] MEDS ORDERED: KETOROLAC 30 MG/ML VIAL IVP ONE (20:35)
[2018-05-18] MEDS ORDERED: CLINDAMYCIN 600 MG/4 ML VIAL IV ONE (20:35)
[2018-05-18 20:47] LABS: BASOPHILS % (AUTO) 0.5 % (0.0-2.0); EOSINOPHILS # (AUTO) 0.2 K/uL (0-0.4); EOSINOPHILS % (AUTO) 2.5 % (0.0-4.0); HEMATOCRIT 39.1 % (36-52); HEMOGLOBIN 12.3 g/dL (12.0-18.0); LYMPHOCYTES # (AUTO) 1.7 K/uL (2.0-11.5); LYMPHOCYTES % (AUTO) 18.3 % (20.5-51.1); MEAN CORPUSCULAR HEMOGLOBIN 25 pg (27-31); MEAN CORPUSCULAR HGB CONC 31 g/dL (33-37); MEAN CORPUSCULAR VOLUME 78.3 fL (80-94); MONOCYTES # (AUTO) 0.6 K/uL (0.8-1.0); MONOCYTES % (AUTO) 6.9 % (1.7-9.3); NEUTROPHILS # (AUTO) 6.5 K/uL (1.8-7.7); NEUTROPHILS % (AUTO) 71.8 % (42.2-75.2); PLATELET COUNT (AUTO) 374 K/uL (140-450); RED BLOOD CELL COUNT(AUTO) 4.99 MIL/uL (4.20-6.10); RED CELL DISTRIBUTION WIDTH 14.3 % (11.6-13.7)
[2018-05-18 21:12] LABS: CREATININE 1.6 mg/dL (0.7-1.3)
[2018-05-18 21:16] LABS: ALBUMIN 3.1 g/dL (3.4-5.0); TOTAL BILIRUBIN 0.5 mg/dL (0.0-1.0)
[2018-05-18 21:22] LABS: PROTHROMBIN TIME 10.8 secs (10.8-13.4)
[2018-05-18 21:50] VITALS: BP 170/94
--- NOTE | 2018-05-18 21:50 | NUR ---
Patient discharged with v/s stable. Written and verbal after care instructions given and explained. Patient verbalized understanding. Ambulatory with steady gait. All questions addressed prior to discharge. Advised to follow up with PMD.
== END 2018-05-18 21:50 | disposition home or self-care (01) ==
LOC: MED 19:22
DX: G89.18 Other acute postprocedural pain (principal); K21.9 Gastro-esophageal reflux disease without esophagitis; I10 Essential (primary) hypertension; Z88.1 Allergy status to other antibiotic agents; Z79.899 Other long term (current) drug therapy; Z48.00 Encounter for change or removal of nonsurgical wound dressing; Z90.49 Acquired absence of other specified parts of digestive tract
CPT/HCPCS: 36415; 80053; 85025; 85610; 85730; 96365; 96375; 99283; J1885; J2270; J3490; J7030

== ENCOUNTER 2018-05-24 13:12 | Emergency (ER) | payer OTHER ==
[~2018-05-24] VITALS: Ht 177.8 cm; Wt 82.1 kg
[~2018-05-24 13:12] MED LIST changes: +CLIN300C5 PO; +TRAM50TA1 PO
[2018-05-24 13:19] VITALS: BP 120/79
--- NOTE | 2018-05-24 13:34 | NUR ---
52/M [facility] SELF FOR WOUND CHECK. may 02, 2018 surgical incision s/p colon resection from diverticulitis. ADRIANNE REMOVED LAST WEEK. YELLOW DRAINAGE FROM ABD WOUND. hx---htn rx----lisinopril, carvedilol. PATIENT STATES PAIN OF 5/10 AT THIS TIME. PATIENT POSITIONED FOR COMFORT; HOB ELEVATED; BEDRAILS UP X2; BED DOWN. ER MD MADE AWARE OF PT STATUS.
--- NOTE | 2018-05-24 14:21 | NUR ---
PT TAKEN TO CT VIA W/C, ACCOMPANIED BY BUSINESS SUPERVISOR.
[2018-05-24 15:24] VITALS: BP 135/99
--- NOTE | 2018-05-24 15:24 | NUR ---
Patient discharged with v/s stable. Written and verbal after care instructions given and explained. Patient alert, oriented and verbalized understanding of instructions. Ambulatory with steady gait. All questions addressed prior to discharge. ID band removed. Patient advised to follow up with PMD. Rx of FLOMAX & NORCO given. Patient educated on indication of medication including possible reaction and side effects. Opportunity to ask questions provided and answered.
[2018-05-24 15:32] LABS: BILIRUBIN,URINE NEGATIVE (NEGATIVE); BLOOD, URINE NEGATIVE (NEGATIVE); COLOR,URINE YELLOW (YELLOW); LEUKOCYTE ESTERASE ,URINE NEGATIVE (NEGATIVE); NITRITE, URINE NEGATIVE (NEGATIVE); PH,URINE 5.5 (5.0-9.0); UGLUCOSE NEGATIVE (NEGATIVE)
[2018-05-24 15:36] LABS: APPEARANCE,URINE CLEAR (CLEAR)
== END 2018-05-24 15:24 | disposition home or self-care (01) ==
LOC: MED 13:12
DX: T81.31XA Disruption of external operation (surgical) wound, not elsewhere classified, initial encounter (principal); N20.0 Calculus of kidney; K21.9 Gastro-esophageal reflux disease without esophagitis; I10 Essential (primary) hypertension; Z88.1 Allergy status to other antibiotic agents; Z79.891 Long term (current) use of opiate analgesic; Z79.2 Long term (current) use of antibiotics; Z79.899 Other long term (current) drug therapy; Z98.890 Other specified postprocedural states; Y92.89 Other specified places as the place of occurrence of the external cause
CPT/HCPCS: 81003; 99284

== ENCOUNTER 2018-06-10 13:27 | Emergency (ER) | payer OTHER ==
[~2018-06-10] VITALS: Ht 177.8 cm; Wt 84.4 kg
[2018-06-10 13:44] VITALS: BP 130/80
[2018-06-10] MEDS ORDERED: LACTULOSE 20 GM/30 ML UDC PO ONE (14:25)
[2018-06-10] MEDS ORDERED: KETOROLAC 60 MG/2 ML VIAL IM ONE (14:25)
[2018-06-10] MEDS ORDERED: MORPHINE SULFATE 4 MG/ML SYR IM ONE (14:25)
[2018-06-10 15:22] VITALS: BP 130/80
== END 2018-06-10 15:22 | disposition home or self-care (01) ==
LOC: MED 13:27
DX: G89.29 Other chronic pain (principal); R10.32 Left lower quadrant pain; K21.9 Gastro-esophageal reflux disease without esophagitis; I10 Essential (primary) hypertension; Z79.899 Other long term (current) drug therapy; Z88.1 Allergy status to other antibiotic agents
CPT/HCPCS: 96372; 99283; J1885; J2270

== ENCOUNTER 2018-06-12 23:15 | Emergency (ER) | payer OTHER ==
[~2018-06-12] VITALS: Ht 177.8 cm; Wt 81.6 kg
[2018-06-12 23:22] VITALS: BP 139/90
--- NOTE | 2018-06-12 23:25 | NUR ---
TO LOBBY A/W BED, TERI TABARES NOTED
--- NOTE | 2018-06-12 23:29 | NUR ---
PT TAKEN TO BED 11
--- NOTE | 2018-06-12 23:47 | NUR ---
52/M PRESENTS TO ED, C/O "BAD TASTE IN MOUTH," BURPING, EPIGASTRIC PAIN, INTERMITTENTLY X2 WEEKS. LBM TODAY, REPORTS MILD DIARRHEA. PT DENIES FEVER, N/V. PT AOX4, GCS 15, RR EVEN AND UNLABORED. LUNG SOUNDS CLEAR BL. BS ACTIVE X4, ABD SOFT ROUND NONTENDER. MIDLINE ABD INCISION HEALING WELL, WELL APPROXIMATED, NO REDNESS OR DISCHARGE. HX HTN, DIVERTICULITIS S/P COLON SURGERY 1 MONTH AGO RX LISINOPRIL, CARVEDILOL, LINZESS
--- NOTE | 2018-06-13 00:07 | NUR ---
Dr. Pretty evaluating patient at bedside.
[2018-06-13] MEDS ORDERED: PANTOPRAZOLE 40 MG TABEC PO ONE (00:15)
[2018-06-13 00:25] VITALS: BP 122/74
--- NOTE | 2018-06-13 00:25 | NUR ---
Patient discharged with v/s stable. Written and verbal after care instructions given and explained. Patient alert, oriented and verbalized understanding of instructions. Ambulatory with steady gait. All questions addressed prior to discharge. ID band removed. Patient advised to follow up with PMD. Rx of Lactulose and Protonix given. Patient educated on indication of medication including possible reaction and side effects. Opportunity to ask questions provided and answered.
== END 2018-06-13 00:25 | disposition home or self-care (01) ==
LOC: MED 23:15
DX: K21.9 Gastro-esophageal reflux disease without esophagitis (principal); I10 Essential (primary) hypertension; Z98.890 Other specified postprocedural states; Z79.891 Long term (current) use of opiate analgesic; Z79.2 Long term (current) use of antibiotics; Z79.899 Other long term (current) drug therapy; Z88.1 Allergy status to other antibiotic agents; Z88.0 Allergy status to penicillin
CPT/HCPCS: 99283

== ENCOUNTER 2019-05-03 04:58 | Emergency (ER) | payer OTHER ==
[~2019-05-03] VITALS: Ht 177.8 cm; Wt 90.7 kg
[~2019-05-03 04:58] MED LIST changes: -HYDR-7 PO; +[UNRECOGNIZED DRUG - CODE] PO
[2019-05-03 05:00] VITALS: BP 159/105
--- NOTE | 2019-05-03 05:00 | NUR ---
PT AMBULATED TO BED #12
--- NOTE | 2019-05-03 05:10 | NUR ---
53 Y/O MALE PRESENTS TO ED, C/O HEADACHE 02/23. PT STATES HAVING HEADACHE X1 MONTH. TOOK NORCO10 LAST NIGHT AT 1800. PT DENIES N/V/D AND DIZZINESS. DENIES ANY CHEST PAIN OR SOB. C/O HAVING HIGH BLOOD PRESSURE DURING APPOINTMENT WITH THERAPIST. PT HAS HX OF HTN; TAKES LISINOPRIL, COMPLIANT WITH MEDICATION. PT AT STABLE CONDITION. PLACED ON MONITOR. ERMD MADE AWAREY. WILL CONTINUE TO MONITOR.
[2019-05-03] MEDS ORDERED: MORPHINE SULFATE 4 MG/ML SYR IM ONE (05:45)
[2019-05-03] MEDS ORDERED: ONDANSETRON 4 MG ODT PO ONE (05:45)
[2019-05-03] MEDS ORDERED: NITROGLYCERIN 0.4 MG TAB SL ONE (06:40)
[2019-05-03 07:05] VITALS: BP 142/90
--- NOTE | 2019-05-03 07:05 | NUR ---
PT DISCHARGED WITH PAPERWORK. EDUCATED PT REGARDING MEDICATION AND D/C DIAGNOSIS. PT VERBALIZED UNDERSTANDING. TOLD PT TO FOLLOW UP WITH PCP AND WHEN TO RETURN TO ED. PT VSS. ERMD AWARE. WILL CONTINUE TO MONITOR.
== END 2019-05-03 07:05 | disposition home or self-care (01) ==
LOC: MED 04:58
DX: R51 Headache (principal); I10 Essential (primary) hypertension; K21.9 Gastro-esophageal reflux disease without esophagitis; Z98.890 Other specified postprocedural states; Z79.899 Other long term (current) drug therapy; Z79.2 Long term (current) use of antibiotics; Z79.891 Long term (current) use of opiate analgesic; Z88.0 Allergy status to penicillin
CPT/HCPCS: 96372; 99283; J2270; Q0162

== ENCOUNTER 2019-05-05 23:59 | Inpatient (IN) | payer OTHER ==
[~2019-05-05] VITALS: Ht 175.3 cm; Wt 86.2 kg
[2019-05-06] VITALS: BP 200/120
--- NOTE | 2019-05-06 | NUR ---
TO BED # 07 AMBULATORY
--- NOTE | 2019-05-06 00:15 | NUR ---
53 YO M BIB PRESENTS TO ED C/O 02/23 LLQ ABD PAIN X 4 HOURS WITH N/V. PT REPORTS HX OF DIVERTICULITIS AND COLON RESECTION IN APRIL OF LAST YEAR. PT ALSO STATES "I FEEL CONSTIPATED. I FEEL LIKE I NEED TO POOP BUT NOTHING IS COMING OUT". PER PT, LAST BM WAS 2 DAYS AGO. PT ALSO STATES HE CAN'T PASS GAS AND CAN'T REMEMBER THE LAST TIME HE DID. PT IS VOMTIING DURING ASSESSMENT. APPEARS TO BE IN SEVERE PAIN; MOANING, SHAKING, RESTLESSNESS, GRIMACING ABD GUARDING. ABD IS SOFT, PLIABLE, TENDER TO TOUCH. HYPOACTIVE BOWEL SOUNDS + 4.
--- NOTE | 2019-05-06 00:26 | NUR ---
DR. ARENAS BEDSIDE EVALUATING PT
[2019-05-06] MEDS ORDERED: NACL 0.9% 1,000 ML IV SCH (00:27)
[2019-05-06] MEDS ORDERED: ONDANSETRON 4 MG/2 ML VIAL IVP ONE ×2 (00:30→03:35)
[2019-05-06] MEDS ORDERED: MORPHINE SULFATE 4 MG/ML SYR IVP ONE ×2 (00:30→03:45)
[2019-05-06] MEDS ORDERED: fentaNYL 0.05 MG/ML VIAL IVP ONE (01:00)
--- NOTE | 2019-05-06 01:17 | NUR ---
EKG BEING DONE BY HLIARIO CAMARENA.
[2019-05-06 01:22] LABS: ANION GAP 13.6 (8-16); BASOPHILS % (AUTO) 0.5 % (0.0-2.0); CARBON DIOXIDE 28.4 mmol/L (21-32); CREATININE 1.3 mg/dL (0.7-1.3); EOSINOPHILS # (AUTO) 0.2 K/uL (0-0.4); EOSINOPHILS % (AUTO) 2.4 % (0.0-4.0); HEMATOCRIT 45.1 % (36-52); HEMOGLOBIN 14.3 g/dL (12.0-18.0); LYMPHOCYTES # (AUTO) 2.8 K/uL (2.0-11.5); MEAN CORPUSCULAR HEMOGLOBIN 26 pg (27-31); MEAN CORPUSCULAR HGB CONC 32 g/dL (33-37); MEAN CORPUSCULAR VOLUME 80.8 fL (80-94); MONOCYTES # (AUTO) 0.4 K/uL (0.8-1.0); MONOCYTES % (AUTO) 6.7 % (1.7-9.3); NEUTROPHILS # (AUTO) 3.2 K/uL (1.8-7.7); NEUTROPHILS % (AUTO) 48.4 % (42.2-75.2); PLATELET COUNT (AUTO) 158 K/uL (140-450); RED BLOOD CELL COUNT(AUTO) 5.59 MIL/uL (4.20-6.10); RED CELL DISTRIBUTION WIDTH 14.3 % (11.6-13.7); WHITE BLOOD COUNT (AUTO) 6.6 K/uL (4.8-10.8)
[2019-05-06 01:27] LABS: TOTAL BILIRUBIN 0.5 mg/dL (0.0-1.0)
--- NOTE | 2019-05-06 01:30 | NUR ---
pt taken to ct via w/c
--- NOTE | 2019-05-06 01:58 | NUR ---
PT RETURNED BACK FROM CT VIA WHEELCHAIR.
[2019-05-06] MEDS ORDERED: fentaNYL 0.05 MG/ML VIAL IM ONE (02:00)
--- NOTE | 2019-05-06 03:45 | NUR ---
AMBULATES TO WITH STEADY, HUNCHED OVER GAIT. URINE CUP PROVIDED.
--- NOTE | 2019-05-06 04:16 | NUR ---
CALLED CT FOR PENDING RESULTS. SAID TO GIVE THEM 10-15MIN FOR RESULTS.
--- NOTE | 2019-05-06 04:30 | NUR ---
AT BEDSIDE. PT LAYING COMFORTABLY IN BED. EQUAL CHEST RISE AND FALL. NO DISTRESS NOTED.
--- NOTE | 2019-05-06 05:50 | NUR ---
Patient will be admitted to care of [facility]. Admited to TELE. Will go to room 112A. Belongings list completed. Report to HILARIO NASH.
[2019-05-06 06:00] VITALS: BP 145/95
--- NOTE | 2019-05-06 06:00 | NUR ---
RECEIVED PT FROM ER NURSETHEE. PT CAME IN [facility] AND ABLE TO AMBULATE TO [facility] BED. NO SOB OR ANY RESPIRATORY DISTRESS NOTED. IV SITE ON RAC 18G, PATENT, INTACT, AND ASYMPTOMATIC. CC: ABD PAIN, DX: SMALL BOWEL OBSTRUCTION. ALLERGIC TO AMOXICILLIN, AMPICILLIN. SKIN INTACT, WARM AND DRY TO TOUCH. ORIENT ROOM TO PT. MRSA SWAB DONE, VS CHECKED, WITHIN PT'S BASELINE, UPDATED BOARD, ALL SAFETY MEASUREMENT ARE MET, BED IN LOW POSITION, CALL LIGHT WITHIN REACH.
--- NOTE | 2019-05-06 07:15 | NUR ---
RECEIVED PT FROM CLERICAL AIDE TEACHER NURSESAAD, PT IS AWAKE AND LYING ON THE BED WITH C/O PAIN RATE OF 8/10, WILL MEDICATE, IV LINE ON THE RT AC G. 18 ON SALINE LOCK, SIDE RAILS RE UP AND CALL LIGHT WITHIN REACH, NO OTHER UNTOWARD SIGNS AND SYMPTOMS NOTED, WILL MEDICATE AND MONITOR PT.
[2019-05-06] MEDS ORDERED: MORPHINE SULFATE 2 MG/ML SYR IVP PRN (07:30)
[2019-05-06] MEDS ORDERED: HYDROcodone/APAP 5/325 MG 1 TAB TAB PO PRN (07:30)
[2019-05-06] MEDS ORDERED: IPRATROPIUM 0.02% 0.5 MG/2.5 ML NEBU INH PRN (07:30)
[2019-05-06] MEDS ORDERED: LORazepam 2 MG/ML VIAL IVP PRN (07:30)
[2019-05-06] MEDS ORDERED: MAG SULF 2000 MG/WATER PREMIX 50 ML IV PRN (07:30)
[2019-05-06] MEDS ORDERED: ACETAMINOPHEN 325 MG TAB PO PRN (07:30)
[2019-05-06] MEDS ORDERED: hydrALAZINE 20 MG/ML VIAL IVP PRN (07:35)
[2019-05-06] MEDS: DEXT 5% / NACL 0.45% 1,000 ML IV SCH ×2 (08:05→21:16)
[2019-05-06] MEDS: amLODIPine 5 MG TAB PO SCH (08:33)
[2019-05-06] MEDS: LISINOPRIL 20 MG TAB PO SCH (08:33)
--- NOTE | 2019-05-06 08:33 | NUR ---
PT WAS GIVEN ORAL MEDICATIONS AND WILL MONITOR PT.
[2019-05-06] MEDS: HYDROCHLOROTHIAZIDE 25 MG TAB PO SCH (08:34)
[2019-05-06] MEDS: metroNIDAZOLE 500 MG/NS PREMIX 100 ML IV SCH ×3 (10:19→22:06)
--- NOTE | 2019-05-06 10:41 | NUR ---
DR. MARINA WAS TALKING TO PT NOW AND TELLING THE PT THE POC.
[2019-05-06] MEDS: LEVOFLOXACIN 500 MG/D5W PREMIX 100 ML IV SCH (11:46)
[2019-05-06] MEDS: cloNIDine 0.1 MG TAB PO PRN ×2 (11:50→18:13)
--- NOTE | 2019-05-06 11:50 | NUR ---
PT'S V/S WAS CHECKED AND BP WAS 172/99, PULSE IS 63 ON THE SECOND ATTEMPT TO CHECK, ORAL PRN BP MED WAS GIVEN AND WILL RE- ASSESS BP AND MONITOR PT.
[2019-05-06 12:00] VITALS: BP 172/99
[2019-05-06] MEDS: MORPHINE SULFATE 2 MG/ML SYR IVP PRN ×2 (13:39→17:43)
[2019-05-06] MEDS: ONDANSETRON 4 MG/2 ML VIAL IVP PRN (14:04)
--- NOTE | 2019-05-06 14:08 | NUR ---
PATIENT HAS BEEN SCREENED AND CATEGORIZED MODERATE NUTRITION RISK. PATIENT WILL BE SEEN WITHIN 3-5 DAYS OF ADMISSION. 05/09/19 - 05/11/19 BHARATH SHAH MBA, RD
--- NOTE | 2019-05-06 14:58 | NUR ---
DR. AVILA CALLED AND MADE A TELEPHONE ORDER TO HAVE A WATER SOLUBLE GASTROGRAFIN ENEMA WITH RADIOLOGY STUDY TO THE PT AND A PHYSICIAN CONSULT FOR DR. TRAMMELL FOR GI, ACKNOWLEDGED, READ BACK AND VERIFIED AND WILL CARRY OUT ORDER
[2019-05-06 16:00] VITALS: BP 161/96
--- NOTE | 2019-05-06 16:33 | NUR ---
KATHERINE FROM RADIOLOGY CALLED AND INFORMED THAT PT WILL HAVE THE WATER SOLUBLE GASTROGRAFIN TEST MARIS DUMONT
--- NOTE | 2019-05-06 17:35 | NUR ---
PT IS AMBULATING TO THE HALLWAY NOW, NO SIGN OF DISTRESS NOTED.
--- NOTE | 2019-05-06 19:10 | NUR ---
ENDORSED PT TO ASSOCIATE ENTERTAINMENT EDITOR NURSEKIERRA FOR CONTINUITY OF CARE, PT IS STABLE WITH SON ON THE BEDSIDE.
--- NOTE | 2019-05-06 19:12 | NUR ---
RECEIVED REPORT FROM DAY SHIFT NURSE. PT SITTING ON BED, TALKING TO HIS SON AT BEDSIDE. AAOX4. NO C/O PAIN AT THIS TIME. NO SOB NOTED. ON ROOM AIR. SKIN INTACT. IV TO RIGHT AC #18G, D5 1/2ns AT 80 ML, INFUSING WELL. DISCUSSED PLAN OF CARE, PT VERBALIZED UNDERSTANDING. SAFETY PRECAUTION IN PLACE. CALL LIGHT WITHIN REACH.
[2019-05-06 20:00] VITALS: BP 147/89
--- NOTE | 2019-05-06 21:30 | NUR ---
PT HAD SMALL BM. NO C/O PAIN AT THIS TIME. DAUGHTER AT BEDSIDE.
--- NOTE | 2019-05-06 23:45 | NUR ---
PT C/O ABDOMINAL PAIN 8/10 SCALE. MORPHINE 4 MG IVP GIVEN.
[2019-05-07] VITALS: BP 140/90
[2019-05-07] MEDS: MORPHINE SULFATE 2 MG/ML SYR IVP PRN (00:43)
--- NOTE | 2019-05-07 02:16 | NUR ---
PT WATCHING TV. DENIES PAIN OR SOB. ALL NEEDS ATTENDED AT THIS TIME. CALL LIGHT WITHIN REACH.
[2019-05-07] MEDS: ONDANSETRON 4 MG/2 ML VIAL IVP PRN (02:47)
[2019-05-07 04:00] VITALS: BP 135/89
[2019-05-07] MEDS: DEXT 5% / NACL 0.45% 1,000 ML IV SCH ×2 (04:05→10:52)
[2019-05-07] MEDS: metroNIDAZOLE 500 MG/NS PREMIX 100 ML IV SCH ×3 (04:47→20:35)
--- NOTE | 2019-05-07 05:00 | NUR ---
PT RESTING IN BED WITH EYES CLOSED. NO S/S OF PAIN. RESP EVEN AND UNLABORED. CALL LIGHT WITHIN REACH.
--- NOTE | 2019-05-07 07:10 | NUR ---
ENDORSED PT TO DAY SHIFT NURSE. PT IN STABLE CONDITION.
--- NOTE | 2019-05-07 07:18 | NUR ---
RECEIVED PT FROM ORGAN TUNER NURSE,KIERRA, PT IS AWAKE AND LYING ON THE BED WITH SIDE RAILS UP AND CALL LIGHT WITHIN REACH, IV LINE ON THE RT AC G. 18 WITH D5 1/2 NS INFUSING AT 80ML/HR, AN OLD ABDOMINAL SURGERY SCAR WAS NOTED, PT DENIES PAIN AND NO SIGN OF DISTRESS NOTED, WILL CONTINUE TO MONITOR PT.
[2019-05-07 07:40] VITALS: BP 133/89
[2019-05-07] MEDS: LEVOFLOXACIN 500 MG/D5W PREMIX 100 ML IV SCH (09:35)
[2019-05-07] MEDS: amLODIPine 5 MG TAB PO SCH (09:36)
[2019-05-07] MEDS: HYDROCHLOROTHIAZIDE 25 MG TAB PO SCH (09:36)
--- NOTE | 2019-05-07 09:36 | NUR ---
PT BP 127/97, PULSE 65, PT WAS GIVEN IV AND ORAL MEDICATION. HYDROCHLOROTHIAZIDE 1 TABLET WAS WASTED BECAUSE PT REFUSED TO TAKE IT. MEDICATION HAS BEEN OPENED ALREADY.
[2019-05-07] MEDS: LISINOPRIL 20 MG TAB PO SCH (09:37)
[2019-05-07] MEDS: MORPHINE SULFATE 4 MG/ML SYR IVP PRN ×2 (09:52→18:15)
--- NOTE | 2019-05-07 10:44 | NUR ---
Associate Software Developer Note: Basic Screen: Yes High Risk DC Screen [place]: TANVIR PAREDES Home Relationship: Pre-Admission Living Arrangements: Lives with Other Prior ADL Independent Current Home Health Name/Tel: N/A Current DME/02 Name/Tel: [facility] Current Hospice Name/Tel: N/A Current Dialysis Name/Tel: N/A Healthcare Decision Maker: Patient Advance Directive No - REFUSED Physician Orders for Life Sustaining Treatment Form No Information Taught: Advance Directive Person Taught: Patient Teaching Tools: Verbal Factors Affecting Learning: None Participation Level: Refused Evaluation: Verbalizes Understanding Needs Additional Education: No Discipline: Case Mgt/Social Svcs Tentative Discharge Plan/Destination: No Needs Identified Will require assistance post discharge: No Referred to Local Bulk Driver: No Tentative Discharge Plan Summary: Patient is a 53-year-old male admitted for small bowel obstruction. Patient has PMHX of GERD and hypertension. Patient was admitted from home. SW met with patient at bedside to verify demographics. Patient stated he utilizes a cane, but is able to complete all ADLs independently. Patient reports a mental health history but did not want to state diagnoses. Patient reports no current substance abuse. SW provided education on advanced directive but patient refused. Patient's tentative discharge plan is to return home. No further needs identified. Signature: LINH Russo Date: May 07, 2019 Time: 10:43
--- NOTE | 2019-05-07 11:35 | NUR ---
PT IS OFF THE UNIT FOR A GASTROGRAFIN WATER SOLUBLE ENEMA.
[2019-05-07 12:00] VITALS: BP 126/91
[2019-05-07 12:16] LABS: BASOPHILS % (AUTO) 0.2 % (0.0-2.0); EOSINOPHILS # (AUTO) 0.1 K/uL (0-0.4); EOSINOPHILS % (AUTO) 0.9 % (0.0-4.0); HEMATOCRIT 45.5 % (36-52); HEMOGLOBIN 14.6 g/dL (12.0-18.0); LYMPHOCYTES # (AUTO) 1.5 K/uL (2.0-11.5); LYMPHOCYTES % (AUTO) 14.7 % (20.5-51.1); MEAN CORPUSCULAR HEMOGLOBIN 26 pg (27-31); MEAN CORPUSCULAR HGB CONC 32 g/dL (33-37); MEAN CORPUSCULAR VOLUME 80.2 fL (80-94); MONOCYTES # (AUTO) 0.7 K/uL (0.8-1.0); MONOCYTES % (AUTO) 6.7 % (1.7-9.3); NEUTROPHILS # (AUTO) 7.9 K/uL (1.8-7.7); NEUTROPHILS % (AUTO) 77.5 % (42.2-75.2); PLATELET COUNT (AUTO) 139 K/uL (140-450); RED BLOOD CELL COUNT(AUTO) 5.67 MIL/uL (4.20-6.10); RED CELL DISTRIBUTION WIDTH 14.7 % (11.6-13.7); WHITE BLOOD COUNT (AUTO) 10.2 K/uL (4.8-10.8)
--- NOTE | 2019-05-07 12:35 | NUR ---
PT IS BACK TO ROOM NOW FROM A GASTROGRAFIN ENEMA PROCEDURE.
[2019-05-07 12:37] LABS: ANION GAP 10.3 (8-16); CARBON DIOXIDE 29.3 mmol/L (21-32); CREATININE 1.3 mg/dL (0.7-1.3); POTASSIUM 3.6 mmol/L (3.5-5.1)
[2019-05-07 12:44] LABS: MAGNESIUM 1.6 mg/dL (1.8-2.4); PHOSPHORUS 2.2 mg/dL (2.5-4.9)
[2019-05-07 12:46] LABS: BILIRUBIN,DIRECT 0.2 mg/dL (0.0-0.3); TOTAL BILIRUBIN 1.2 mg/dL (0.0-1.0)
--- NOTE | 2019-05-07 13:26 | NUR ---
PT WAS GIVEN IVPB FLAGYL NOW, IV LINE CLEANED AND REINFORCED.
[2019-05-07 16:00] VITALS: BP 154/91
--- NOTE | 2019-05-07 18:15 | NUR ---
PT C/O PAIN RATE OF 8/10 AND IV PAIN MEDICATION WAS GIVEN VIA IV PUSH, BP IS 141/91, PULSE IS 94, WILL RE-ASSESS AND MONITOR PT.
--- NOTE | 2019-05-07 19:30 | NUR ---
ENDORSED PT TO MANAGER OF DISTRIBUTION NURSE FOR CONTINUITY OF CARE.
--- NOTE | 2019-05-07 19:31 | NUR ---
REPORT RECEIVED FROM AM NURSE AT BEDSIDE. PT IN STABLE CONDITION. AAOX4. INTRODUCED SELF TO PT. BOARD UPDATED. PT HAS COMPLAINTS OF PAIN. WILL MEDICATE. NO SOB. AFEBRILE. PT IS AMBULATORY. IV SITE R AC 18G RUNNING D5 1/2NS@80ML/HR PATENT AND INTACT. SKIN WARM, DRY, AND INTACT. BED LOCKED IN LOW POSITION. CALL PAUL WITHIN REACH. SAFETY PRECAUTION IN PLACE. ALL NEEDS MET AT THIS TIME.
[2019-05-07 20:00] VITALS: BP 127/92
--- NOTE | 2019-05-07 22:20 | NUR ---
PT AWAKE AND ALERT LAYING IN BED WATCHING TV. NO S/S OF DISTRESS NOTED. WILL CONTINUE TO MONITOR.
--- NOTE | 2019-05-07 23:15 | NUR ---
ERNESTINA CORDERO AND RIVKA. JT GIVEN FOR BREAKTHROUGH PAIN. PT TOLERATED WELL. Addendum: 05/07/19 at 2315 by Tano Kumar RN MEDICATIONS GIVEN AT 2034.
[2019-05-08] VITALS: BP 130/92
[2019-05-08] MEDS: MORPHINE SULFATE 4 MG/ML SYR IVP PRN ×4 (00:07→22:45)
--- NOTE | 2019-05-08 00:07 | NUR ---
MORPHINE GIVEN FOR 8/10 ABDOMINAL PAIN. PT TOLERATED WELL.
--- NOTE | 2019-05-08 01:55 | NUR ---
PT AWAKE IN BED ON HIS PHONE. NO S/S OF DISTRESS NOTED. WILL CONTINUE TO MONITOR.
[2019-05-08 04:00] VITALS: BP 140/88
[2019-05-08] MEDS: metroNIDAZOLE 500 MG/NS PREMIX 100 ML IV SCH ×3 (04:07→22:53)
--- NOTE | 2019-05-08 04:07 | NUR ---
ERNESTINA HUNG AND RUNNING. PT TOLERATING WELL.
--- NOTE | 2019-05-08 05:10 | NUR ---
PT IN BED TRYING TO SLEEP. NO S/S OF DISTRESS NOTED. NO COMPLAINTS OF PAIN. NO SOB. AFEBRILE. WILL CONTINUE TO MONITOR.
--- NOTE | 2019-05-08 06:50 | NUR ---
PT SLEEPING COMFORTABLY BUT AROUSABLE. PT IN STABLE CONDITION.
--- NOTE | 2019-05-08 07:20 | NUR ---
RECEIVED BEDSIDE REPORT FROM FULL SERVICE VENDING DRIVER NURSE, PT IS AWAKE, WATCHING TV, NO S/S OF ACUTE DISTRESS OR SOB. PT IS ON ROOM AIR, SKIN INTACT. IV SITE R AC 18 G, INFUSING D5 1/2 NS 80 ML/HR. PT IS AMBULATORY AND ABLE TO MAKE NEEDS KNOWN. PT IS C/O 9/10 ABD PAIN, WILL MEDICATE SOON POSSIBLE. CALL LIGHT IS WITHIN REACH.
[2019-05-08 07:28] LABS: BASOPHILS % (AUTO) 0.3 % (0.0-2.0); EOSINOPHILS # (AUTO) 0.2 K/uL (0-0.4); HEMATOCRIT 42.1 % (36-52); HEMOGLOBIN 13.3 g/dL (12.0-18.0); LYMPHOCYTES # (AUTO) 2.1 K/uL (2.0-11.5); MAGNESIUM 1.7 mg/dL (1.8-2.4); MEAN CORPUSCULAR HEMOGLOBIN 25 pg (27-31); MEAN CORPUSCULAR HGB CONC 32 g/dL (33-37); MEAN CORPUSCULAR VOLUME 80.4 fL (80-94); MONOCYTES # (AUTO) 0.7 K/uL (0.8-1.0); MONOCYTES % (AUTO) 6.7 % (1.7-9.3); NEUTROPHILS # (AUTO) 7.1 K/uL (1.8-7.7); PHOSPHORUS 2.9 mg/dL (2.5-4.9); PLATELET COUNT (AUTO) 149 K/uL (140-450); RED BLOOD CELL COUNT(AUTO) 5.24 MIL/uL (4.20-6.10); RED CELL DISTRIBUTION WIDTH 14.5 % (11.6-13.7); WHITE BLOOD COUNT (AUTO) 10.2 K/uL (4.8-10.8)
[2019-05-08 07:46] LABS: ANION GAP 12.2 (8-16); CARBON DIOXIDE 27.9 mmol/L (21-32); CREATININE 1.4 mg/dL (0.7-1.3); POTASSIUM 3.1 mmol/L (3.5-5.1)
[2019-05-08 08:00] VITALS: BP 124/78
[2019-05-08] MEDS: amLODIPine 5 MG TAB PO SCH (08:24)
[2019-05-08] MEDS: LISINOPRIL 20 MG TAB PO SCH (08:25)
[2019-05-08] MEDS: LEVOFLOXACIN 500 MG/D5W PREMIX 100 ML IV SCH (08:25)
[2019-05-08] MEDS: HYDROCHLOROTHIAZIDE 25 MG TAB PO SCH (08:25)
--- NOTE | 2019-05-08 08:40 | NUR ---
AM SCHEDULED MEDS ADMINISTERED, ALONG WITH THE PRN MORPHINE FOR ABD PAIN 01/24. PT TOLERATED WELL.
[2019-05-08] MEDS: DEXT 5% / NACL 0.45% 1,000 ML IV SCH (10:46)
[2019-05-08 12:00] VITALS: BP 139/93
--- NOTE | 2019-05-08 12:01 | NUR ---
NEW IV INSERTED, R FA 22 G.
--- NOTE | 2019-05-08 12:20 | NUR ---
PT TOLERATING SOFT DIET WELL.
[2019-05-08 15:07] LABS: HEPATITIS A ANTIBODY IGM Negative (Negative); HEPATITIS B CORE AB TOTAL Negative (Negative); HEPATITIS B SURFACE ANTIBODY Non Reactive (.); HEPATITIS B SURFACE ANTIGEN Negative (Negative)
--- NOTE | 2019-05-08 15:08 | NUR ---
PT IS AWAKE AND ALERT, NO S/S OF DISTRESS, SITTING UP ON HIS BED, TALKING ON THE PHONE.
[2019-05-08 16:00] VITALS: BP 129/92
[2019-05-08] MEDS: MAGNESIUM OXIDE 400 MG TAB PO PRN (18:24)
[2019-05-08] MEDS: POTASSIUM CHLORIDE 10 MEQ TABER PO PRN (18:24)
--- NOTE | 2019-05-08 19:20 | NUR ---
ENDORSED PT TO BAKERY TEAM MEMBER NURSE IN STABLE CONDITION
--- NOTE | 2019-05-08 19:20 | NUR ---
RECEIVED ENDORSEMENT FORM MARIA VICTORIA RAINES AT BEDSIDE FOR CONTINUITY OF CARE, PT IN STABLE CONDITION.
[2019-05-08 20:00] VITALS: BP 128/79
--- NOTE | 2019-05-08 20:00 | NUR ---
PT IN BED HE IS AOX4 WITH SKIN INTACT LUNGS CLEAR AND BOWEL SOUNDS ACTIVE. PT SAID HE HAD A BM THIS MORNING, HE IS ON A SOFT DIET AT THIS TIME. IV SITE ON R F/A INTACT AND RUNNING D5 1/2 NS AT 80MLS/HR. V/S FOLLOWS: T 99.0 P 70 R 18 B/P 128/79 02 97% ON ROOM AIR. PT DECLINED COOLING MEASURES AT THIS TIME. BED LOW AND CALL PALU IN REACH. HE IS SPEAKING ON THE PHONE AND PT DENIES ANY PAIN AT THIS TIME.
--- NOTE | 2019-05-08 21:00 | NUR ---
PT GIVEN ORDERED FLAGYL THAT IS HUNG AND RUNNING AT 100MLS/HR ORDERED. D5 1/2 NS FLUIDS REPLACED WELL. PT IN BED AND SPEAKING ON THE PHONE. NO S/S OF PAIN OR DISTRESS NOTED.
--- NOTE | 2019-05-08 22:00 | NUR ---
PT AMBULATING IN HALLWAYS (STEADY GAIT) AND REQUESTED A SANDWICH , WHICH WAS GIVEN .
[2019-05-08] MEDS: ONDANSETRON 4 MG/2 ML VIAL IVP PRN (22:46)
--- NOTE | 2019-05-08 23:00 | NUR ---
PT C/O OF SEVERE ABDOMINAL PAIN, WHICH HE SAYS COMES ON WHEN HE MOVES WELL REQUESTING ZOFRAN FOR NAUSEA. PT GIVEN MEDS REQUESTED, WILL MONITOR FOR EFFECT.
[2019-05-09] VITALS: BP 129/95
--- NOTE | 2019-05-09 | NUR ---
PT IN LOW BED AWAKE AND SPEAKING ON THE PHONE, POSITIVE EFFECT OF MORPHINE AND ZOFRAN NOTED. IV SITE INTACT AND RUNNING D5 1/2NS ORDERED, AT 80MLS/HR. V/S FOLLOWS: T 98.1 P 77 R 18 B/P 129/95 02 96% ON ROOM AIR. ALL REQUESTED NEEDS ATTENDED AND CALL PAUL IN REACH.
--- NOTE | 2019-05-09 02:00 | NUR ---
PT IN BED SLEEPING, NO S/S OF PAIN OR DISTRESS NOTED BED LOW SIDE RAILS UP AND CALL PAUL IN REACH, IV SITE INTACT AND ASYMPTOMATIC. AND RUNNING D51/2 NS AT 80MLS/HR.
[2019-05-09 04:00] VITALS: BP 116/82
--- NOTE | 2019-05-09 04:45 | NUR ---
PT IN BED RESTING WITH EYES CLOSED BUT AROUSABLE TO NAME. PT SAYS BELLY IS A LITTLE SORE BUT TOLERABLE, HE DOESN'T WANT PAIN MEDS AT THIS TIME. V/S FOLLOWS:T 97.8 P 62 R 18 B/P 116/82 02 96% ON ROOM AIR. FLAGYL HUNG AND RUNNING AT 100MLS/HR ORDERED. BED LOW CALL PAUL IN REACH. ALL REQUESTED NEEDS ATTENDED AND CALL PAUL IN REACH.
[2019-05-09] MEDS: metroNIDAZOLE 500 MG/NS PREMIX 100 ML IV SCH ×2 (05:12→12:34)
[2019-05-09 07:23] LABS: BASOPHILS # (AUTO) 0.1 K/uL (0.00-0.22); BASOPHILS % (AUTO) 0.6 % (0.0-2.0); EOSINOPHILS # (AUTO) 0.3 K/uL (0-0.4); EOSINOPHILS % (AUTO) 3.8 % (0.0-4.0); HEMATOCRIT 42.8 % (36-52); HEMOGLOBIN 13.6 g/dL (12.0-18.0); LYMPHOCYTES # (AUTO) 1.9 K/uL (2.0-11.5); LYMPHOCYTES % (AUTO) 23.8 % (20.5-51.1); MEAN CORPUSCULAR HEMOGLOBIN 26 pg (27-31); MEAN CORPUSCULAR HGB CONC 32 g/dL (33-37); MEAN CORPUSCULAR VOLUME 80.4 fL (80-94); MONOCYTES # (AUTO) 0.6 K/uL (0.8-1.0); MONOCYTES % (AUTO) 7.4 % (1.7-9.3); NEUTROPHILS # (AUTO) 5.1 K/uL (1.8-7.7); NEUTROPHILS % (AUTO) 64.4 % (42.2-75.2); PLATELET COUNT (AUTO) 162 K/uL (140-450); RED BLOOD CELL COUNT(AUTO) 5.32 MIL/uL (4.20-6.10); RED CELL DISTRIBUTION WIDTH 14.6 % (11.6-13.7); WHITE BLOOD COUNT (AUTO) 7.9 K/uL (4.8-10.8)
[2019-05-09 07:30] LABS: ANION GAP 10.8 (8-16); CARBON DIOXIDE 27.6 mmol/L (21-32); CREATININE 1.4 mg/dL (0.7-1.3); POTASSIUM 3.4 mmol/L (3.5-5.1)
--- NOTE | 2019-05-09 07:34 | NUR ---
RECEIVED BEDSIDE REPORT FROM PM RN PT AWAKE IN BED PT ON TELE MONITOR. ALL SAFETY MEASURES ARE IN PLACE IVF INFUSING IV SITE APPEARS PATENT AND SHOWS NO SIGNS OF INFILTRATION OR INFLAMMATION. WILL CONTINUE TO MONITOR
[2019-05-09 07:45] LABS: MAGNESIUM 1.6 mg/dL (1.8-2.4); PHOSPHORUS 3.1 mg/dL (2.5-4.9)
[2019-05-09 08:30] VITALS: BP 122/80
[2019-05-09] MEDS: LEVOFLOXACIN 500 MG/D5W PREMIX 100 ML IV SCH (09:01)
[2019-05-09] MEDS: amLODIPine 5 MG TAB PO SCH (09:01)
[2019-05-09] MEDS: LISINOPRIL 20 MG TAB PO SCH (09:02)
[2019-05-09] MEDS: HYDROCHLOROTHIAZIDE 25 MG TAB PO SCH (09:02)
[2019-05-09] MEDS: MORPHINE SULFATE 4 MG/ML SYR IVP PRN (09:14)
--- NOTE | 2019-05-09 09:46 | NUR ---
FREQUENT ROUNDING ON PT PT APPEARS STABLE AND IN NO APPARENT DISTRESS. ALL SAFETY MEASURES ARE IN PLACE WILL CONTINUE TO MONITOR
--- NOTE | 2019-05-09 11:34 | NUR ---
FREQUENT ROUNDING ON PT PT APPEARS STABLE AND IN NO APPARENT DISTRESS. ALL SAFETY MEASURES ARE IN PLACE WILL CONTINUE TO MONITOR
--- NOTE | 2019-05-09 12:05 | NUR ---
DC PLANNING 53 YRS OLD MALE PATIENT WAS ADMITTED FROM HOME WITH A DX OF SMALL BOWEL OBSTRUCTION. PT HAS A HX OF GERD, HTN AND HEMICOLECTOMY FOR DIVERTICULITIS IN 2018. ADMINISTERED IVF ,EMPERIC ANTIBIOTICS ,LEVAQUIN AND FLAGYL FOR DIVERTICULITIS , FOLLOW UP STOOL STUDIES AND PAIN CONTROL. SURGICAL CONSULT WITH DR BOCANEGRA, SEEN PT AND RECOMMENDED NON SURGICAL MANAGEMENT AT THIS TIME AND GI WITH DR TRAMMELL SEEN PATIENT AND ORDERED GASTROGRAFIN ENEMA, AND RESOLVING BOWEL OBSTRUCTION, AND RECOMMENDED TO F/U OUT PATIENT. DC PLAN TO GO HOME WHEN STABLE AND TO FOLLOW UP WITH GI DOCTOR. CM TO FOLLOW
[2019-05-09 12:15] VITALS: BP 121/86
[2019-05-09] MEDS: MAGNESIUM OXIDE 400 MG TAB PO PRN (12:35)
[2019-05-09] MEDS: POTASSIUM CHLORIDE 10 MEQ TABER PO PRN (12:35)
--- NOTE | 2019-05-09 13:21 | NUR ---
FREQUENT ROUNDING ON PT PT APPEARS STABLE AND IN NO APPARENT DISTRESS. ALL SAFETY MEASURES ARE IN PLACE WILL CONTINUE TO MONITOR
[2019-05-09] MEDS ORDERED: MAGNESIUM OXIDE 400 MG TAB PO SCH (15:12)
[2019-05-09] MEDS ORDERED: POTASSIUM CHLORIDE 10 MEQ TABER PO SCH (15:12)
[2019-05-09] MEDS ORDERED: ACET-9525 PO (15:17)
[2019-05-09] MEDS ORDERED: ORE25 PO (15:17)
[2019-05-09] MEDS ORDERED: LEVO750T2 PO (15:17)
[2019-05-09] MEDS ORDERED: LISI-420 PO (15:17)
[2019-05-09] MEDS ORDERED: METR250T2 PO (15:17)
[2019-05-09] MEDS ORDERED: AMLO5TAB6 PO (15:17)
--- NOTE | 2019-05-09 16:10 | NUR ---
REVIEWED DISCHARGE INSTRUCTIONS WITH PATIENT INSTRUCTED PATIENT TO TAKE ALL MEDICATIONS PRESCRIBED INFORMED PT TO FOLLOW UP WITH HER PCP WITHIN 5 BUSINESS DAYS OR FOLLOW UP AT [facility] IF SHE DOES NOT HAVE A PCP. INSTRUCTED PT ON DIET AND EXERCISE. PROVIDED PT WITH SMOKING CESSATION INSTRUCTIONS. REMOVED IV IV TIP INTACT. REMOVED ID BAND. PT AMBULATED OFF THE UNIT WITH ALL PERSONAL BELONGINGS.
== END 2019-05-09 16:15 | disposition home or self-care (01) | DRG 244 ==
LOC: MED 23:59 → MTU 05-06 05:22
PROVIDERS: ADMIT Internal Medicine Pulmonary Disease; ATTEND Internal Medicine Pulmonary Disease
DX: K57.92 Diverticulitis of intestine, part unspecified, without perforation or abscess without bleeding (principal); I21.A1 Myocardial infarction type 2; K56.699 Other intestinal obstruction unspecified as to partial versus complete obstruction; E86.9 Volume depletion, unspecified; I10 Essential (primary) hypertension; Z90.49 Acquired absence of other specified parts of digestive tract; K21.9 Gastro-esophageal reflux disease without esophagitis; Z79.899 Other long term (current) drug therapy; Z88.1 Allergy status to other antibiotic agents
CPT/HCPCS: 36415; 71250; 74018; 74270; 76705; 80048; 80053; 80076; 82948; 83690; 83735; 84100; 84484; 85025; 86704; 86706; 86708; 86709; 86803; 87081; 87340; 93005; 96361; 96374; 96375; 96376; 99285; J1956; J2270; J2405; J3010; J3490; J7030; Q0092; Q9967

== ENCOUNTER 2019-06-08 06:19 | Emergency (ER) | payer OTHER ==
[~2019-06-08] VITALS: Ht 175.3 cm; Wt 88.5 kg
[~2019-06-08 06:19] MED LIST changes: -ACET-5629 PO; +ACET-9525 PO; +AMLO5TAB6 PO; -CARV25TA PO; -CIPR500T4 PO; -CLIN300C5 PO; -DOCU-299 PO; -HYDR-5092 PO; +LEVO750T2 PO; +LISI-420 PO; +ORE25 PO; -TRAM50TA1 PO; -[UNRECOGNIZED DRUG - CODE] PO
[2019-06-08 06:23] VITALS: BP 133/84
--- NOTE | 2019-06-08 06:23 | NUR ---
PT AMBULATED TO BED #7
--- NOTE | 2019-06-08 06:30 | NUR ---
53 YEAR OLD MALE COMPLAINS OF LEFT EAR PAIN X 2 DAYS. PATIENT STATES THAT HE WAS AT HIS DOCTORS OFFICE AND THE NURSE JAMMED THE SYRINGE INTO HIS EAR WHEN TRYING TO FLUSH IT OUT. PATIENT STATES HE HAS THROBBING PAIN 8/10 SINCE THE EVENT. PATIENT STATES HE IS ABLE TO HEAR FINE, BUT FEELS HE HAS TO ADJUST HIS EAR AT TIMES TO HEAR PROPERLY. PATIENT STATES THERE WAS SOME BLOOD DISCHARGE THE NIGHT OF THE EVENT, BUT HAS DENIED DISCHARGE EVER SINCE. PATIENT AOX4, BREATHING EVEN AND UNLABORED, SKIN WARM AND DRY. BED IN LOWEST POSITION, LOCKED, BED RAIL UPX1. PMH - HTN MEDS - LISINOPRIL, ZOFRAN, FAMOTIDINE, AMLODIPINE, HYDROCHLOROTHIAZIDE ALLERGIES - AMOXICLLIN, AMPICILLIN
--- NOTE | 2019-06-08 07:20 | NUR ---
ASSUMED CARE OF PATIENT AND RECEIVED BED SIDE REPORT
[2019-06-08 07:46] VITALS: BP 133/84
--- NOTE | 2019-06-08 07:47 | NUR ---
PATIENT LEFT WITHOUT BEING SEEN BY DR. DAMON. NO FURTHER CARE PROVIDED FOR PATIENT.
== END 2019-06-08 07:47 | disposition left against medical advice (07) ==
LOC: MED 06:19
DX: H92.02 Otalgia, left ear (principal); Z53.21 Procedure and treatment not carried out due to patient leaving prior to being seen by health care provider

== ENCOUNTER 2019-11-08 09:30 | Emergency (ER) | payer OTHER ==
[~2019-11-08] VITALS: Ht 177.8 cm; Wt 91.2 kg
[2019-11-08 09:35] VITALS: BP 152/80
--- NOTE | 2019-11-08 09:39 | NUR ---
PT AMBULATED TO ER BED 07
--- NOTE | 2019-11-08 09:59 | NUR ---
54/M C/O LEFT POSTERIOR HEAD PAIN 30 MIN [employer] WHEN HE FELT "POP" IN BACK OF THE HEAD. DENIES INJURY OR LOC. DENIES VISUAL CHANGES, DIZZINESS, WEAKNESS, N/V. PT STATES PAIN IS 5/10, SHARP. HAS HAD SIMILAR PAIN IN THE PAST, NO DX. MEDHX: HTN
--- NOTE | 2019-11-08 10:00 | NUR ---
FULL CLEAR SPEECH. AMBULATORY STEADY GAIT. HAND MILL TENDER WARM UP 5/5 BILATERALLY
--- NOTE | 2019-11-08 10:02 | NUR ---
PT DENIES EAR DISCOMFORT
--- NOTE | 2019-11-08 10:15 | NUR ---
DR. GRANT EVALUATING PT AT BEDSIDE
--- NOTE | 2019-11-08 10:48 | NUR ---
PT BACK FROM CT SCAN VIA W/C
--- NOTE | 2019-11-08 11:34 | NUR ---
DR GRANT SPEAKING WITH PT AT BEDSIDE
[2019-11-08 11:37] VITALS: BP 140/85
== END 2019-11-08 11:37 | disposition home or self-care (01) ==
LOC: MED 09:30
DX: R51 Headache (principal); K21.9 Gastro-esophageal reflux disease without esophagitis; I10 Essential (primary) hypertension; Z88.1 Allergy status to other antibiotic agents; Z86.79 Personal history of other diseases of the circulatory system; Z79.899 Other long term (current) drug therapy
CPT/HCPCS: 70450; 99284

== ENCOUNTER 2020-01-19 00:22 | Emergency (ER) | payer OTHER ==
[~2020-01-19] VITALS: Ht 177.8 cm; Wt 83.9 kg
[2020-01-19 00:26] VITALS: BP 148/93
--- NOTE | 2020-01-19 00:38 | NUR ---
PT AMBULATED TO BED 9 WITH STEADY GAIT
--- NOTE | 2020-01-19 00:39 | NUR ---
URINE SAMPLE AT BEDSIDE
--- NOTE | 2020-01-19 00:40 | NUR ---
ADMITTED PT TO ER BED 9. PT A/A/OX4,AMBULATORY. PER PT HE CAME TO ER TO GET TESTED FOR STD'S. PT STATED THAT HE HAD UNPROTECTED SEX WITH THE OPPOSITE SEX (FEMALE) YESTERDAY. PT DENIES ANY BURNING ON URINATION, PAIN AND STATED " I HAVE A LITTLE DISCHARGE ON MY PRIVATE AREA BUT I'M NOT SURE". ALLERGY: AMOXICILLIN & AMPICILLIN PMH: HTN, DIVERTICULITIS, AORTIC ANEURYSM, COLON SURGERY
[2020-01-19] MEDS ORDERED: metroNIDAZOLE 500 MG TAB PO ONE (01:10)
[2020-01-19] MEDS ORDERED: AZITHROMYCIN 250 MG TAB PO ONE (01:10)
[2020-01-19] MEDS ORDERED: cefTRIAXone 250 MG in LIDOCAINE MPF 1% 0.9 ML IM ONE (01:10)
[2020-01-19] MEDS ORDERED: cefTRIAXone 250 MG VIAL ONE (01:12)
[2020-01-19] MEDS ORDERED: LIDOCAINE MPF 1% 5 ML ONE (01:13)
[2020-01-19 01:26] VITALS: BP 148/93
[2020-01-21 07:09] LABS: CHLAMYDIA TRACHOMATIS AMP DNA Negative (Negative)
== END 2020-01-19 01:26 | disposition home or self-care (01) ==
LOC: MED 00:22
DX: R30.0 Dysuria (principal); I10 Essential (primary) hypertension; K21.9 Gastro-esophageal reflux disease without esophagitis; Z20.2 Contact with and (suspected) exposure to infections with a predominantly sexual mode of transmission; Z88.1 Allergy status to other antibiotic agents; Z79.899 Other long term (current) drug therapy
CPT/HCPCS: 36415; 81002; 87491; 96372; 99283; J0696; J2001

== ENCOUNTER 2021-08-19 10:14 | Emergency (ER) | payer OTHER ==
[~2021-08-19] VITALS: Ht 177.8 cm; Wt 92.1 kg
[~2021-08-19 10:14] MED LIST changes: +AMLO-3 PO; -AMLO5TAB6 PO; +HYDR25TA33 PO; -LISI-420 PO; +LISI20TA29 PO; +METR-520 PO; -METR250T2 PO; -ORE25 PO
--- NOTE | 2021-08-19 10:33 | NUR ---
PT AMBULATED TO ER BED 6 WITH A STEADY GAIT.
[2021-08-19 10:35] VITALS: BP 126/89
--- NOTE | 2021-08-19 10:42 | NUR ---
56 Y/O MALE C/O CHEST PAIN 12/24 DESCRIBES SHARP X1WEEK. DENIES FEVER/CHILLS. DENIES N/V/D. DENIES NEW STRESSORS IN LIFE. PMH: HTN, HLD, AORTIC ANEURISM ALLERGIES: AMPICILLIN, AMOXICILLIN
--- NOTE | 2021-08-19 10:55 | NUR ---
DR. MCGARRY AT PT BEDSIDE FOR FURTHER EVALUATION.
--- NOTE | 2021-08-19 11:06 | NUR ---
DEVULCANIZER HEAD AT PT BEDSIDE.
--- NOTE | 2021-08-19 11:38 | NUR ---
OBTAINED CT CONSENT PLACED IN PT CHART.
[2021-08-19 11:52] LABS: EOSINOPHILS # (AUTO) 0.1 K/uL (0-0.4)
[2021-08-19 12:10] LABS: PROTHROMBIN TIME 9.9 secs (10.8-13.4)
[2021-08-19 12:11] VITALS: BP 121/78
[2021-08-19 12:14] LABS: ALBUMIN 3.4 g/dL (3.4-5.0); ANION GAP 8.7 (8-16); CARBON DIOXIDE 30.3 mmol/L (21-32); CREATININE 1.2 mg/dL (0.6-1.3); TOTAL BILIRUBIN 0.5 mg/dL (0.0-1.0)
--- NOTE | 2021-08-19 12:15 | NUR ---
PT RESTING IN BED, VSS, WILL CONTINUE TO MONITOR.
[2021-08-19 12:42] LABS: BASOPHILS % (AUTO) 0.8 % (0.0-2.0); HEMATOCRIT 39.4 % (36-52); HEMOGLOBIN 12.9 g/dL (12.0-18.0); LYMPHOCYTES # (AUTO) 1.9 K/uL (2.0-11.5); LYMPHOCYTES % (AUTO) 42.9 % (20.5-51.1); MEAN CORPUSCULAR HEMOGLOBIN 26 pg (27-31); MEAN CORPUSCULAR HGB CONC 33 g/dL (33-37); MEAN CORPUSCULAR VOLUME 80.1 fL (80-94); MONOCYTES # (AUTO) 0.3 K/uL (0.8-1.0); MONOCYTES % (AUTO) 6.9 % (1.7-9.3); NEUTROPHILS % (AUTO) 46.4 % (42.2-75.2); PLATELET COUNT (AUTO) 162 K/uL (140-450); RED BLOOD CELL COUNT(AUTO) 4.92 MIL/uL (4.20-6.10); RED CELL DISTRIBUTION WIDTH 14.4 % (11.6-13.7); WHITE BLOOD COUNT (AUTO) 4.4 K/uL (4.8-10.8)
--- NOTE | 2021-08-19 13:39 | NUR ---
PT MOVED TO BED 08 VIA [facility].
[2021-08-19] MEDS ORDERED: NAPR-1704 PO (14:02)
--- NOTE | 2021-08-19 14:11 | NUR ---
PT SITTING AT EDGE OF BED, VSS, WILL CONTINUE TO MONITOR.
== END 2021-08-19 14:45 | disposition home or self-care (01) ==
LOC: MED 10:14
DX: R07.89 Other chest pain (principal); I10 Essential (primary) hypertension; Z86.79 Personal history of other diseases of the circulatory system; K21.9 Gastro-esophageal reflux disease without esophagitis; E78.5 Hyperlipidemia, unspecified; Z98.890 Other specified postprocedural states; Z79.2 Long term (current) use of antibiotics; Z79.899 Other long term (current) drug therapy; Z79.891 Long term (current) use of opiate analgesic; Z88.0 Allergy status to penicillin
CPT/HCPCS: 36415; 71045; 71275; 74174; 80053; 83880; 84484; 85025; 85610; 85730; 86886; 86900; 86901; 93005; 99285; Q0092; Q9967